=== PATIENT | female | born 1930 | race Caucasian/White ===

== ENCOUNTER 2017-01-05 07:51 | Observation (INO) ==
[2017-01-05] MEDS ORDERED: HYDROmorphone 2 MG/ML SYRINGE IV SCH (08:15)
[2017-01-05] MEDS ORDERED: 0.9 % SODIUM CHLORIDE 1,000 ML IV ONE (08:15)
[2017-01-05] MEDS ORDERED: LORazepam 2 MG/ML VIAL IV ONE (08:15)
[2017-01-05] MEDS ORDERED: KETOROLAC 30 MG/ML VIAL IV ONE (08:17)
[2017-01-05] MEDS ORDERED: HYDROmorphone 2 MG/ML SYRINGE ONE (08:18)
--- NOTE | 2017-01-05 08:21 | Emergency Department Note ---
Back Pain HPI - General Chief Complaint: Back Pain/Injury Stated Complaint: back pain Time Seen by Provider: 01/05/17 08:00 Source: patient Mode of arrival: EMS Limitations: no limitations - History of Present Illness HPI Narrative: 86-year-old female with acute on chronic low back pain comes in this morning via EMS for exacerbation. Apparently she was sitting on the toilet this morning and could not get up or off. It took 4 men to get off the toilet bring her in. They gave her 100 mcg of fentanyl en route which did not help at all. Apparently her pain has gradually been worsening over the last several weeks and she has been placed on narcotics which have made her very constipated. Her daughter is concerned that the constipation is making the back pain worse and believe she is dehydrated as well. She is taking gabapentin muscle relaxer and hydrocodone at home. She is also been using mag citrate without effect She came to our ER 9 days ago and was treated. Then came back on the . additionally she saw interventional pain consultants same day. Per the patient they could not find a cause for her back pain she says that she knows she has a bad disc that is causing her pain. However I do not have access to the records to verify. X-rays were done on 12/27/2016-that is on her first visit and they do not show significant cause for her severe back pain - Related Data Home Medications Medication Instructions Recorded Confirmed Citalopram [Celexa] 20 mg PO DAILY 12/27/16 12/27/16 HYDROcodone/ACETAMINOPHEN 1 each PO Q4HP PRN 12/27/16 12/27/16 [Hydrocodon-Acetaminophen 5-325] Isosorbide Mononitrate [Imdur] 30 mg PO DAILY 12/27/16 12/27/16 Metoprolol Unknown If Er 12/27/16 Ramipril [Altace] 10 mg PO DAILY 12/27/16 12/27/16 Simvastatin [Zocor] 20 mg PO DAILY 12/27/16 12/27/16 metFORMIN [Glucophage] 500 mg PO BIDCC 12/27/16 12/27/16 traZODone HCL [Trazodone HCl] 50 mg PO HS 12/27/16 12/27/16 Previous Rx's Medication Instructions Recorded HYDROcodone/APAP 10/325MG [[place]aron 1 tab PO Q6H PRN #15 tab 12/27/16 10/325Mg] RX: Gabapentin [Neurontin] 100 mg PO TID #30 cap 12/27/16 Methocarbamol [Robaxin] 500 mg PO QIDP #30 tab 12/30/16 Allergies Allergy/AdvReac Type Severity Reaction Status Date / Time Penicillins Allergy Unknown Hives Verified 01/05/17 07:56 ibuprofen AdvReac Mild Hives Verified 01/05/17 07:56 Review of Systems All systems ED: reviewed and negative except as stated. Past Medical History - Past Medical History Attestation: Yes: The following information was validated with the patient. Medical history: Reports: coronary artery disease, diabetes (type II , not on insulin), hypertension, valvular heart disease (mitral valve), other ( qustionable rheumatic fever) Surgical history ED: Reports: hysterectomy, orthopedic, other (Hip) - Social History smoking status: Never smoker Alcohol use: Reports: None Physical Exam Overweight elderly female in some distress secondary to pain. Normocephalic atraumatic. Conjunctive are clear sclerae nonicteric. No nasal discharge or congestion. Heart is regular rate and rhythm no murmurs appreciated. Lungs are clear to auscultation bilaterally without wheezes rales rhonchi or respiratory distress. Abdomen soft nontender nondistended. No peritoneal signs or guarding. +2 radial pulse. +2 posterior tibialis pulse. Unable to do straight leg raise secondary to patient positioning and cooperation. I examined her back at the time of moving her for CT scan-she does have tenderness all across her lumbar area but I do not see any deformity erythema or edema. Paraspinal areas appear normal. Is alert oriented able to answer questions appropriately. No dysarthria or ataxia. Appears globally frail/weak - General Limitations: no limitations Course Vital Signs Temperature 97.6 F 01/05/17 07:52 Pulse Rate 65 01/05/17 07:52 Respiratory Rate 20 01/05/17 07:52 Blood Pressure 213/76 01/05/17 07:52 Pulse Oximetry (%) 99 01/05/17 07:52 Temperature 97.6 F 01/05/17 07:52 Pulse Rate 63 01/05/17 09:04 Respiratory Rate 20 01/05/17 07:52 Blood Pressure 181/61 01/05/17 09:02 Pulse Oximetry (%) 95 01/05/17 09:04 Disposition Pt seen by CLINICAL FACULTY/PA only: No Summary: Patient is seen and evaluated. Difficult to get a good back exam on her secondary to cooperation but we did manage this. She was treated before her exam with some Dilaudid on top of the fentanyl that the EMS already given her. Additionally I ordered Toradol and Ativan. Because of possible dehydration we started IV fluids as well. I ordered an enema for the constipation and her home ramipril for blood pressure. CT scan was ordered for evaluation without contrast because this would show not only current state of her lower back but also stool burden and other exacerbating abdominal factors Became time for shift change and so patient is checked out to Dr. montemayor for further management Disposition: Still a Patient Condition: Undetermined Referrals: Edgardo Newman DO [Primary Care Provider] -
[2017-01-05] MEDS ORDERED: MINERAL OIL 1 DOSE ENEMA PR ONE (08:29)
[2017-01-05] MEDS ORDERED: RAMIPRIL 5 MG CAPSULE PO ONE (08:29)
--- NOTE | 2017-01-05 09:46 | Cat Scan Report ---
CLINICAL INFORMATION: Reason for Exam:severe low back pain, severe constipation COMPARISON: None. TECHNIQUE: The abdomen was imaged without oral or IV contrast, scanning from the diaphragm to the symphysis pubis. Sagittal and coronal reformats were created. FINDINGS: There are bands of scar atelectasis in both lung bases. Mild traction bronchiectasis is present in the posterior medial basal segment of the right lower lobe. The heart is mildly enlarged. Evaluation of abdominal organs without contrast is limited. No abnormality is seen within the liver, spleen, gallbladder, pancreas or adrenals. In the cortex and central third of the right kidney there is a vague low-attenuation structure which is approximately 1.4 cm in size. It has water attenuation and is most likely a cyst with partial volume averaging. The kidneys are otherwise normal and there is no kidney stone or hydronephrosis. There is a large amount of fecal material in the colon from the cecum to the rectum. There is also moderate amount of fluid in nondilated small bowel. The appendix is not visualized. The uterus and ovaries have been removed. Urinary bladder appears normal. There are gas degenerative changes throughout the thoracic and lumbar spine. There is severe spinal canal stenosis at L3-4 and L4-5. There is a metal pin in the left hip. 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 IMPRESSION: Fecal impaction Severe spinal canal stenosis at L3-4 and L4-5 Low-attenuation lesion in the right kidney which is probably a cyst Scar and discoid atelectasis in both lung bases Dr. Lewis was called with the results Interpreted and Authenticated by: Juan Bush 01/05/17
[2017-01-05] MEDS ORDERED: FLEETS ADULT ENEMA PR ONE (09:57)
[2017-01-05 10:14] LABS: ALT/SGPT 13 U/l (0-40); Albumin 3.2 gm/dL (3.2-5.2); Alkaline Phosphatase 77 U/L (39-117); Blood Urea Nitrogen 11 mg/dl (8-23)
[2017-01-05 10:18] LABS: Basophils # (Auto) 0.1 K/mcL (0.0-0.3); Basophils % (Auto) 0.7 % (0.0-2.0); Eosinophils # (Auto) 0.1 K/mcL (0.0-0.7); Eosinophils % (Auto) 1.2 % (0.0-7.0); Granulocytes % (Auto) 73.6 % (38.0-78.0); Lymphocytes # (Auto) 1.5 K/mcL (1.5-4.8); Lymphocytes % (Auto) 15.9 % (15.5-49.0); Mean Cell Volume 93.6 fL (80.0-100.0); Mean Corpuscular HGB Conc 32.9 g/dL (31.0-36.0); Mean Corpuscular Hemoglobin 30.8 pg (26.0-34.0); Monocytes # (Auto) 0.8 K/mcL (0.1-0.9); Monocytes % (Auto) 8.6 % (1.0-12.0); Platelet Count 259 K/mcL (140-440); RBC 3.73 M/mcL (4.00-5.20); Red Cell Distribution Width 12.9 % (11.5-14.5)
--- NOTE | 2017-01-05 12:01 | Emergency Department Note ---
Back Pain HPI - General Chief Complaint: Back Pain/Injury Stated Complaint: back pain Time Seen by Provider: 01/05/17 08:00 Source: patient Limitations: no limitations - Related Data Home Medications Medication Instructions Recorded Confirmed Citalopram [Celexa] 20 mg PO DAILY 12/27/16 12/27/16 HYDROcodone/ACETAMINOPHEN 1 each PO Q4HP PRN 12/27/16 12/27/16 [Hydrocodon-Acetaminophen 5-325] Isosorbide Mononitrate [Imdur] 30 mg PO DAILY 12/27/16 12/27/16 Metoprolol Unknown If Er 12/27/16 Ramipril [Altace] 10 mg PO DAILY 12/27/16 12/27/16 Simvastatin [Zocor] 20 mg PO DAILY 12/27/16 12/27/16 metFORMIN [Glucophage] 500 mg PO BIDCC 12/27/16 12/27/16 traZODone HCL [Trazodone HCl] 50 mg PO HS 12/27/16 12/27/16 Previous Rx's Medication Instructions Recorded Gabapentin [Neurontin] 100 mg PO TID #30 cap 12/27/16 HYDROcodone/APAP 10/325MG [[place] 1 tab PO Q6H PRN #15 tab 12/27/16 10/325Mg] Methocarbamol [Robaxin] 500 mg PO QIDP #30 tab 12/30/16 Allergies Allergy/AdvReac Type Severity Reaction Status Date / Time Penicillins Allergy Unknown Hives Verified 01/05/17 07:56 ibuprofen AdvReac Mild Hives Verified 01/05/17 07:56 Past Medical History - Past Medical History Medical history: Reports: coronary artery disease, diabetes (type II , not on insulin), hypertension, valvular heart disease (mitral valve), other ( qustionable rheumatic fever) Surgical history ED: Reports: hysterectomy, orthopedic, other (Hip) - Social History smoking status: Never smoker Alcohol use: Reports: None Physical Exam - General Limitations: no limitations Course Vital Signs Temperature 97.6 F 01/05/17 07:52 Pulse Rate 65 01/05/17 07:52 Respiratory Rate 20 01/05/17 07:52 Blood Pressure 213/76 01/05/17 07:52 Pulse Oximetry (%) 99 01/05/17 07:52 Temperature 97.6 F 01/05/17 07:52 Pulse Rate 56 L 01/05/17 11:54 Respiratory Rate 20 01/05/17 07:52 Blood Pressure 142/51 01/05/17 11:46 Pulse Oximetry (%) 100 01/05/17 11:54 Back Pain/Injury - MDM Narrative Medical decision making narrative: This patient CT scan shows severe's spinal stenosis and possible stool impaction. However she had minimal stool in the vault and did respond to an enema. I did recommend to the family that they start Colace 100 mg twice a day and follow-up with Dr. Lit Martins. - Lab Data Lab results reviewed: Yes I reviewed the patient's lab results. Result diagrams: 01/05/17 09:20 01/05/17 09:20 Lab Results 01/05/17 01/05/17 01/05/17 Range/Units 09:20 09:20 09:20 WBC 9.4 (4.5-11.0) K/mcL RBC 3.73 L (4.00-5.20) M/mcL Hgb 11.5 L (12.0-15.0) g/dL Hct 34.9 L (36.0-48.0) % MCV 93.6 (80.0-100.0) fL MCH 30.8 (26.0-34.0) pg MCHC 32.9 (31.0-36.0) g/dL RDW 12.9 (11.5-14.5) % Plt Count 259 (140-440) K/mcL MPV 10.0 (7.4-10.4) fL Gran % 73.6 (38.0-78.0) % Lymph % (Auto) 15.9 (15.5-49.0) % [place] % (Auto) 8.6 (1.0-12.0) % Eos % (Auto) 1.2 (0.0-7.0) % Baso % (Auto) 0.7 (0.0-2.0) % Gran # 6.9 (1.8-8.0) K/mcL Lymph # (Auto) 1.5 (1.5-4.8) K/mcL [place] # (Auto) 0.8 (0.1-0.9) K/mcL Eos # (Auto) 0.1 (0.0-0.7) K/mcL Baso # (Auto) 0.1 (0.0-0.3) K/mcL VBG Lactic Acid 1.2 (0.5-2.2) mmol/L Sodium 137 (133-145) mmol/L Potassium 3.9 (3.3-5.1) mmol/L Chloride 100 (96-108) mmol/L Carbon Dioxide 24 (22-30) mmol/L Anion Gap 13.0 (8-16) BUN 11 (8-23) mg/dl Creatinine 0.6 (0.6-1.1) mg/dl GFR Calculation 83 Glucose 113 H (70-105) mg/dL Calcium 8.5 L (8.6-10.4) mg/dl Total Bilirubin 0.7 (0.0-1.0) mg/dL AST 15 (0-37) U/l ALT 13 (0-40) U/l Alkaline Phosphatase 77 (39-117) U/L Total Protein 6.3 (5.9-8.4) gm/dL Albumin 3.2 (3.2-5.2) gm/dL Globulin 3.1 (2.2-3.7) gm/dL Albumin/Globulin Ratio 1.0 (1.0-2.3) - Radiology Data Radiology results reviewed: Yes I reviewed the patient's radiology results. Disposition Pt seen by BEHAVIORAL INTERVENTIONIST/PA only: No Clinical Impression: Lumbar radiculopathy, Degenerative disc disease, Spinal stenosis, Constipation Disposition: Still a Patient Condition: Good Instructions: Lumbar Spinal Stenosis (ED), Constipation (ED) Additional Instructions: Colace 100 mg twice a day Referrals: Edgardo Newman DO [Primary Care Provider] - Time of Disposition: 12:01
--- NOTE | 2017-01-05 12:02 | Emergency Department Note ---
Back Pain HPI - General Chief Complaint: Back Pain/Injury Stated Complaint: back pain Time Seen by Provider: 01/05/17 08:00 Source: patient Limitations: no limitations - Related Data Home Medications Medication Instructions Recorded Confirmed Citalopram [Celexa] 20 mg PO DAILY 12/27/16 12/27/16 HYDROcodone/ACETAMINOPHEN 1 each PO Q4HP PRN 12/27/16 12/27/16 [Hydrocodon-Acetaminophen 5-325] Isosorbide Mononitrate [Imdur] 30 mg PO DAILY 12/27/16 12/27/16 Metoprolol Unknown If Er 12/27/16 Ramipril [Altace] 10 mg PO DAILY 12/27/16 12/27/16 Simvastatin [Zocor] 20 mg PO DAILY 12/27/16 12/27/16 metFORMIN [Glucophage] 500 mg PO BIDCC 12/27/16 12/27/16 traZODone HCL [Trazodone HCl] 50 mg PO HS 12/27/16 12/27/16 Previous Rx's Medication Instructions Recorded Gabapentin [Neurontin] 100 mg PO TID #30 cap 12/27/16 HYDROcodone/APAP 10/325MG [[place] 1 tab PO Q6H PRN #15 tab 12/27/16 10/325Mg] Methocarbamol [Robaxin] 500 mg PO QIDP #30 tab 12/30/16 Allergies Allergy/AdvReac Type Severity Reaction Status Date / Time Penicillins Allergy Unknown Hives Verified 01/05/17 07:56 ibuprofen AdvReac Mild Hives Verified 01/05/17 07:56 Past Medical History - Past Medical History Medical history: Reports: coronary artery disease, diabetes (type II , not on insulin), hypertension, valvular heart disease (mitral valve), other ( qustionable rheumatic fever) Surgical history ED: Reports: hysterectomy, orthopedic, other (Hip) - Social History smoking status: Never smoker Alcohol use: Reports: None Physical Exam - General Limitations: no limitations Course Vital Signs Temperature 97.6 F 01/05/17 07:52 Pulse Rate 65 01/05/17 07:52 Respiratory Rate 20 01/05/17 07:52 Blood Pressure 213/76 01/05/17 07:52 Pulse Oximetry (%) 99 01/05/17 07:52 Temperature 97.6 F 01/05/17 07:52 Pulse Rate 56 L 01/05/17 11:54 Respiratory Rate 20 01/05/17 07:52 Blood Pressure 142/51 01/05/17 11:46 Pulse Oximetry (%) 100 01/05/17 11:54 Back Pain/Injury - Lab Data Result diagrams: 01/05/17 09:20 01/05/17 09:20 Lab Results 01/05/17 01/05/17 01/05/17 Range/Units 09:20 09:20 09:20 WBC 9.4 (4.5-11.0) K/mcL RBC 3.73 L (4.00-5.20) M/mcL Hgb 11.5 L (12.0-15.0) g/dL Hct 34.9 L (36.0-48.0) % MCV 93.6 (80.0-100.0) fL MCH 30.8 (26.0-34.0) pg MCHC 32.9 (31.0-36.0) g/dL RDW 12.9 (11.5-14.5) % Plt Count 259 (140-440) K/mcL MPV 10.0 (7.4-10.4) fL Gran % 73.6 (38.0-78.0) % Lymph % (Auto) 15.9 (15.5-49.0) % [place] % (Auto) 8.6 (1.0-12.0) % Eos % (Auto) 1.2 (0.0-7.0) % Baso % (Auto) 0.7 (0.0-2.0) % Gran # 6.9 (1.8-8.0) K/mcL Lymph # (Auto) 1.5 (1.5-4.8) K/mcL [place] # (Auto) 0.8 (0.1-0.9) K/mcL Eos # (Auto) 0.1 (0.0-0.7) K/mcL Baso # (Auto) 0.1 (0.0-0.3) K/mcL VBG Lactic Acid 1.2 (0.5-2.2) mmol/L Sodium 137 (133-145) mmol/L Potassium 3.9 (3.3-5.1) mmol/L Chloride 100 (96-108) mmol/L Carbon Dioxide 24 (22-30) mmol/L Anion Gap 13.0 (8-16) BUN 11 (8-23) mg/dl Creatinine 0.6 (0.6-1.1) mg/dl GFR Calculation 83 Glucose 113 H (70-105) mg/dL Calcium 8.5 L (8.6-10.4) mg/dl Total Bilirubin 0.7 (0.0-1.0) mg/dL AST 15 (0-37) U/l ALT 13 (0-40) U/l Alkaline Phosphatase 77 (39-117) U/L Total Protein 6.3 (5.9-8.4) gm/dL Albumin 3.2 (3.2-5.2) gm/dL Globulin 3.1 (2.2-3.7) gm/dL Albumin/Globulin Ratio 1.0 (1.0-2.3) Disposition Pt seen by RETAIL WAREHOUSE ASSOCIATE/PA only: No Clinical Impression: Lumbar radiculopathy, Degenerative disc disease, Spinal stenosis, Constipation Disposition: Still a Patient Condition: Good Instructions: Constipation (ED), Lumbar Spinal Stenosis (ED) Additional Instructions: Colace 100 mg twice a day Referrals: Edgardo Newman DO [Primary Care Provider] - Mukesh Martins MD [Physician] -
[2017-01-05] MEDS ORDERED: HYDROmorphone 2 MG/ML SYRINGE IV ONE (12:33)
[2017-01-05] MEDS ORDERED: oxyCODONE HCL 5 MG TABLET PO PRN (13:42)
[2017-01-05] MEDS ORDERED: ONDANSETRON 4 MG/2 ML VIAL IV PRN (13:42)
[2017-01-05] MEDS ORDERED: FLEETS ADULT ENEMA PR PRN (13:42)
[2017-01-05] MEDS ORDERED: NALOXONE HCL 0.4 MG/ML VIAL IV PRN (13:42)
[2017-01-05] MEDS ORDERED: MAG HYDROX/AL HYDROX/SIMETH 30 ML ORAL.SUSP PO PRN (13:42)
[2017-01-05] MEDS ORDERED: MAGNESIUM HYDROXIDE 30 ML ORAL.SUSP PO PRN (13:42)
[2017-01-05] MEDS ORDERED: METHOCARBAMOL 500 MG TABLET PO SCH (13:45)
[2017-01-05] MEDS ORDERED: POLYETHYLENE GLYCOL 3350 17 GM PACKET PO ONE (14:04)
--- NOTE | 2017-01-05 14:27 | Internal Med History&Physical ---
Medical - H&P: HPI Patient information: Note initiated : 01/05/17 at 2:26 pm Service Date, if different from initiated Date: [] Patient: Arminda Loera 86 y/o F admitted on 01/05/17 for back pain. Chief Complaint: [] History of present illness: Ms. Loera is a 86 year old Female with h/o chr back pain spanning 2 decades presents to the ER today with complaints of acute exacerbation of chr back pain. he patient has known history of spinal stenosis, and DDD of spine, advised surgery approx 17 hrs ago, which she did not want to undergo. The patient now presents with pain in the lower back. The patient notes she fell on the right side of her body approximately 10-14 days ago in a parking lot, the pain started a few days later, lower back, 10/10 severity, radiates anteriority, worse with activity better with rest. she has been seen in the ER 3 times for this pain and finally today has been admitted for management. The patient in the last visits was started on gabapentin and methocarbamol. The patient also is taking hydrocodone for her pain. She has not had a BM x 5-6 days and has poor oral intake. The patient also has significant constipation which is related to her use of narcotic pain medications. she denies any new weakness in the legs or loss of bowel bladder control, (has constipation) Usually she follows with Dr Thompson from the pain clinic for management of her pain, she receives injections in her back which help her. This time she was not able to reach her pain doctor due to severity of her pain. In the ER she had a CT scan abdomen done which showed severe spinal stenosis, l3 -l4, and l4-5, fecal impaction. She was given enema in the ER with good response. her labs are otherwise normal Patient was admitted to the hospital for management of acute pain. All systems: reviewed and no additional remarkable complaints except as stated ( as per hpi) Medical - H&P: PMH Medical history: Medical History Degenerative disc disease (Acute) Strain of lumbar region (Acute) Lumbar radiculopathy (Acute) Spinal stenosis (Acute) Constipation (Acute) dm htn hld Pertinent family history: not reviewed Social history: lives with Medical - H&P: Meds Home Medications Medication Instructions Recorded Confirmed Type Citalopram [Celexa] 20 mg PO DAILY 12/27/16 01/05/17 History Gabapentin [Neurontin] 100 mg PO TID #30 cap 12/27/16 01/05/17 Rx HYDROcodone/ACETAMINOPHEN 1 each PO Q4HP PRN 12/27/16 01/05/17 History [Hydrocodon-Acetaminophen 5-325] Isosorbide Mononitrate [Imdur] 30 mg PO DAILY 12/27/16 01/05/17 History Metoprolol Unknown If Er 12/27/16 History Ramipril [Altace] 10 mg PO DAILY 12/27/16 01/05/17 History Simvastatin [Zocor] 20 mg PO DAILY 12/27/16 01/05/17 History metFORMIN [Glucophage] 500 mg PO BIDCC 12/27/16 01/05/17 History traZODone HCL [Trazodone HCl] 50 mg PO HS 12/27/16 01/05/17 History Methocarbamol [Robaxin] 500 mg PO QIDP #30 tab 12/30/16 01/05/17 Rx Allergies Allergy/AdvReac Type Severity Reaction Status Date / Time ibuprofen AdvReac Mild Hives Verified 01/05/17 07:56 Penicillins AdvReac Mild Hives Verified 01/05/17 13:59 Medical - H&P: Exam - Constitutional Vitals: Temp Pulse Resp BP Pulse Ox 97.9 F 71 20 182/80 93 01/05/17 13:35 01/05/17 13:23 01/05/17 13:35 01/05/17 13:35 01/05/17 13:35 Exam: GENERAL: The patient is a well-developed, well-nourished in no apparent distress. Is alert and oriented x3. VITAL SIGNS: Reviewed and as noted elsewhere. HEENT: Head is normocephalic and atraumatic. Extraocular muscles are intact. Pupils are equal, round, and reactive to light. Nares appeared normal. Mouth appears any without lesions. Mucous membranes are dry NECK: Normal to inspection, Supple, No lymphadenopathy or thyromegaly. LUNGS: Air entry equal on both sides, no wheezing, crackles or rhonchi noted. No accessory muscles of respiration HEART: Regular rate and rhythm normal, S1 and S2 heard, no Gallop, S3 or Rub Noted, No Gross murmur heard. ABDOMEN: Soft, nontender, and nondistended. Positive bowel sounds. No hepatosplenomegaly was noted. EXTREMITIES: No cyanosis, clubbing, rash, lesions or edema. NEUROLOGIC: Cranial nerves II through XII are grossly intact. Motor and Sensory System Grossly Intact PSYCHIATRIC: Normal affect, Normal Mood. Appropriate Behavior. SKIN: No ulceration or wounds noted, No jaundice, No rash noted. Medical - H&P: Reslt - Labs CBC & Chem 7: 01/05/17 09:20 01/05/17 09:20 Labs: Short CBC 01/05/17 Range/Units 09:20 WBC 9.4 (4.5-11.0) K/mcL Hgb 11.5 L (12.0-15.0) g/dL Hct 34.9 L (36.0-48.0) % Plt Count 259 (140-440) K/mcL BMP 01/05/17 09:20 Sodium 137 Potassium 3.9 Chloride 100 Carbon Dioxide 24 BUN 11 Creatinine 0.6 Glucose 113 H Calcium 8.5 L Liver Function 01/05/17 Range/Units 09:20 Total Bilirubin 0.7 (0.0-1.0) mg/dL AST 15 (0-37) U/l ALT 13 (0-40) U/l Alkaline Phosphatase 77 (39-117) U/L Albumin 3.2 (3.2-5.2) gm/dL Medical - H&P: A/P - Narrative A/P Narrative: A/P Acute exacerbation of chr back pain Acute constipatin DM HTN HLD Plan Admit to obs Scheduled tylenol Po oxycodoone for moderate to severe pain good bowel regime, miralax x 1, docudate and senna. Resume home meds as appropiriate IVFluids PT/OT eval and treat DVT hep sq Diet Carb consistent DNR Medical - H&P: Qual - Stroke Symptom Onset Unknown: No - VTE Deep Vein Thrombosis/Pulmonary Embolism Present on Admission: No Social History - Tobacco smoking status: Never smoker
[2017-01-05] MEDS ORDERED: DEXTROSE 50% 50 ML VIAL IV PRN (14:39)
[2017-01-05] MEDS ORDERED: DEXTROSE 31 GM ORAL.SUSP PO PRN (14:39)
[2017-01-05] MEDS: LACTATED RINGERS 1,000 ML IV SCH (14:46)
[2017-01-05] MEDS: ACETAMINOPHEN 325 MG TABLET PO SCH ×2 (14:48→20:24)
[2017-01-05] MEDS: 0.9 % SODIUM CHLORIDE 10 ML SYRINGE IV SCH ×2 (14:48→20:27)
[2017-01-05] MEDS: METHOCARBAMOL 500 MG TABLET PO SCH ×2 (14:48→20:26)
[2017-01-05] MEDS: GABAPENTIN 100 MG CAPSULE PO SCH ×2 (14:48→20:27)
[2017-01-05] MEDS: IPRATROPIUM/ALBUTEROL 3 ML AMPUL.NEB NEB SCH ×2 (16:42→19:23)
[2017-01-05] MEDS: metFORMIN 500 MG TABLET PO SCH (16:42)
[2017-01-05] MEDS: INSULIN LISPRO 1 UNIT/0.01 ML UNIT SQ SCH ×2 (16:43→20:50)
[2017-01-05] MEDS ORDERED: IPRATROPIUM/ALBUTEROL 3 ML AMPUL.NEB NEB PRN (20:05)
[2017-01-05] MEDS: traZODone HCL 50 MG TABLET PO SCH (20:26)
[2017-01-05] MEDS: DOCUSATE SODIUM 100 MG CAPSULE PO SCH (20:26)
[2017-01-05] MEDS: SIMVASTATIN 20 MG TABLET PO SCH (20:27)
[2017-01-05] MEDS: HEPARIN 5,000 UNIT/ML VIAL SQ SCH (20:28)
[2017-01-05] MEDS: SENNOSIDES 1 TABLET PO SCH (20:28)
[2017-01-06] MEDS: ACETAMINOPHEN 325 MG TABLET PO SCH ×4 (01:26→20:58)
[2017-01-06] MEDS: LACTATED RINGERS 1,000 ML IV SCH ×2 (03:42→08:02)
[2017-01-06] MEDS: 0.9 % SODIUM CHLORIDE 10 ML SYRINGE IV SCH ×3 (05:23→21:08)
[2017-01-06] MEDS: INSULIN LISPRO 1 UNIT/0.01 ML UNIT SQ SCH ×4 (07:34→20:57)
[2017-01-06] MEDS: metFORMIN 500 MG TABLET PO SCH ×2 (07:35→17:18)
[2017-01-06 08:13] LABS: Basophils # (Auto) 0 K/mcL (0.0-0.3); Basophils % (Auto) 0.6 % (0.0-2.0); Eosinophils # (Auto) 0.1 K/mcL (0.0-0.7); Eosinophils % (Auto) 1.2 % (0.0-7.0); Granulocytes % (Auto) 57.2 % (38.0-78.0); Lymphocytes # (Auto) 2.4 K/mcL (1.5-4.8); Lymphocytes % (Auto) 34.5 % (15.5-49.0); Mean Cell Volume 93.3 fL (80.0-100.0); Mean Corpuscular HGB Conc 34.4 g/dL (31.0-36.0); Mean Corpuscular Hemoglobin 32.1 pg (26.0-34.0); Monocytes # (Auto) 0.4 K/mcL (0.1-0.9); Monocytes % (Auto) 6.5 % (1.0-12.0); Platelet Count 300 K/mcL (140-440); RBC 3.63 M/mcL (4.00-5.20); Red Cell Distribution Width 13.9 % (11.5-14.5)
[2017-01-06 08:32] LABS: Blood Urea Nitrogen 8 mg/dl (8-23)
[2017-01-06] MEDS: METHOCARBAMOL 500 MG TABLET PO SCH ×3 (09:15→20:57)
[2017-01-06] MEDS: DOCUSATE SODIUM 100 MG CAPSULE PO SCH ×2 (09:15→20:57)
[2017-01-06] MEDS: LISINOPRIL 10 MG TABLET PO SCH (09:15)
[2017-01-06] MEDS: CITALOPRAM 20 MG TABLET PO SCH (09:15)
[2017-01-06] MEDS: GABAPENTIN 100 MG CAPSULE PO SCH ×3 (09:15→20:57)
[2017-01-06] MEDS: ISOSORBIDE MONONITRATE 30 MG TAB.XL.24H PO SCH (09:15)
[2017-01-06] MEDS: HEPARIN 5,000 UNIT/ML VIAL SQ SCH ×2 (09:16→20:56)
[2017-01-06] MEDS: LIDOCAINE PATCH TOPICAL SCH ×3 (09:18→21:07)
--- NOTE | 2017-01-06 15:49 | Internal Med Progress Note ---
Medical - PN: Subj Patient information: Note initiated : 01/06/17 at 3:44 pm Service Date, if different from initiated Date: [] Patient: Arminad Loera 86 y/o F admitted on 01/05/17 for Back Pain/Management of Acute Pain. Chief Complaint: [] Interval history: Ms. Loera is a 86 year old Female with h/o chr back pain spanning 2 decades presents to the ER today with complaints of acute exacerbation of chr back pain. he patient has known history of spinal stenosis, and DDD of spine, advised surgery approx 17 hrs ago, which she did not want to undergo. The patient now presents with pain in the lower back. The patient notes she fell on the right side of her body approximately 10-14 days ago in a parking lot, the pain started a few days later, lower back, 10/10 severity, radiates anteriority, worse with activity better with rest. she has been seen in the ER 3 times for this pain and finally today has been admitted for management. The patient in the last visits was started on gabapentin and methocarbamol. The patient also is taking hydrocodone for her pain. She has not had a BM x 5-6 days and has poor oral intake. The patient also has significant constipation which is related to her use of narcotic pain medications. she denies any new weakness in the legs or loss of bowel bladder control, (has constipation) Usually she follows with Dr Thompson from the pain clinic for management of her pain, she receives injections in her back which help her. This time she was not able to reach her pain doctor due to severity of her pain. In the ER she had a CT scan abdomen done which showed severe spinal stenosis, l3 -l4, and l4-5, fecal impaction. She was given enema in the ER with good response. her labs are otherwise normal Patient was admitted to the hospital for management of acute pain. January 06 Patient seen examined, no acute ovenight events she still has pain when trying to amulate but her meds seem to be helping her pain she did not complaint of pain while in bed, but not sure if she will be abl to be pain free without her home meds. she was started on lidoderm patches today PT and OT to help with back pain she continues to have good BM Pertinent ROS: Denies headache, dizziness Denies chest pain, palpitations Denies cough or shortness of breath Denies abdominal pain, nausea or vomiting. - Constitutional Vitals: Vital Signs Temp Pulse Resp BP Pulse Ox 97.6 F 61 20 185/82 95 01/06/17 15:35 01/06/17 08:51 01/06/17 15:35 01/06/17 15:35 01/06/17 15:35 Period Temp Pulse Resp BP Sys/Warner Pulse Ox Last 24 Hr 97 F-98.1 F 58-63 12-22 152-186/67-83 94-97 Intake and Output 01/06/17 01/06/17 01/06/17 05:59 13:59 21:59 Intake Total 1250 / 1250 120 / 120 Output Total 1001 / 1001 900 / 900 Balance 249 / 249 -900 / -900 120 / 120 Intake & Output: Intake & Output 01/06/17 01/06/17 01/06/17 05:59 13:59 21:59 Intake Total 1250 / 1250 120 / 120 Output Total 1001 / 1001 900 / 900 Balance 249 / 249 -900 / -900 120 / 120 Intake: IV 1000 / 1000 Lactated Ringers 1,000 ml @ 75 1000 / 1000 mls/hr IV .[id number] [facility] Rx#: [id number] Oral 250 / 250 120 / 120 Output: Void Amount 1000 / 1000 900 / 900 # of times incontinent of urine Other: Meal Breakfast Percent of Meal Consumed 100% Feeding Ability Independent # Voids 1 1 # Bowel Movements 1 1 Exam: Constitutional; Afebrile, cooperative, alert, not in distress. Eyes- No icterus, , No periorbital swelling Ears- Ext ear normal, hearing normal to conversation. Neck- Midline trachea, supple Respiratory system: Air Entry equal on both sides, No crackles or wheezing, no rhonchi. CVS- Rate rhythm regular, S1,S2 heard, no gallop, no rub. Abdomen- Soft nontender abdomen, no organomegaly, no tenderness, no guarding or rigidity, PRESS CUTTER- AOOx3, moving all extremities, no gross focal deficit noted. Medical - PN: Obj Da - Labs CBC & Chem 7: 01/06/17 07:45 01/06/17 07:45 Labs: Abnormal Lab Results 01/06/17 01/06/17 01/05/17 07:45 07:45 09:20 RBC 3.63 L Hgb 11.6 L Hct 33.8 L Creatinine 0.5 L Glucose 115 H 113 H Calcium 8.5 L 01/05/17 09:20 RBC 3.73 L Hgb 11.5 L Hct 34.9 L Creatinine Glucose Calcium Meds: Medications Acetaminophen (Tylenol) 650 mg PO Q6H [facility] Last Admin: 01/06/17 13:55 Dose: 650 mg Al Hydrox/Mg Hydrox/Simethicone (Maalox) 30 ml PO Q6HP PRN PRN Reason: Dyspepsia Citalopram Hydrobromide (Celexa) 20 mg PO DAILY [facility] Last Admin: 01/06/17 09:15 Dose: 20 mg Dextrose (Dextrose 50%) 0 ml IV UD PRN PRN Reason: Hypoglycemia Diagnostic Test (Pha) (Accu-Chek) 1 each FS ACHS [facility] Last Admin: 01/06/17 11:31 Dose: 1 each Docusate Sodium (Colace) 100 mg PO BID [facility] Last Admin: 01/06/17 09:15 Dose: 100 mg Gabapentin (Neurontin) 100 mg PO TID [facility] Last Admin: 01/06/17 14:24 Dose: 100 mg Glucose (Insta-Glucose) 15 gm PO PRN PRN PRN Reason: Hypoglycemia Heparin Sodium (Porcine) (Heparin) 5,000 unit SQ Q12 [facility] Last Admin: 01/06/17 09:16 Dose: 5,000 unit Lactated Ringer's (Lactated Ringers) 1,000 mls @ 75 mls/hr IV .[id number] [facility] Stop: 01/06/17 16:21 Last Admin: 01/06/17 08:02 Dose: 75 mls/hr Insulin Human Lispro (Humalog) 0 unit SQ ACHS [facility] PRN Reason: Protocol Last Admin: 01/06/17 11:33 Dose: Not Given Isosorbide Mononitrate (Imdur) 30 mg PO DAILY [facility] Last Admin: 01/06/17 09:15 Dose: 30 mg Lidocaine (Lidoderm) 1 patch TOPICAL DAILY@1000 [facility] Last Admin: 01/06/17 10:08 Dose: Not Given Lidocaine (Lidoderm) 0 patch TOPICAL DAILY@2200 [facility] Lisinopril (Zestril) 10 mg PO DAILY [facility] Last Admin: 01/06/17 09:15 Dose: 10 mg Magnesium Hydroxide (Milk Of Magnesia) 30 ml PO DAILYP PRN PRN Reason: Constipation Metformin HCl (Glucophage) 500 mg PO BIDCC [facility] Last Admin: 01/06/17 07:35 Dose: 500 mg Methocarbamol (Robaxin) 500 mg PO TID [facility] Last Admin: 01/06/17 14:24 Dose: 500 mg Naloxone HCl (Narcan) 0.1 mg IV Q2MIN PRN PRN Reason: Opiate Reversal Ondansetron HCl (Zofran) 4 mg IV Q6HP PRN PRN Reason: Nausea And Vomiting Oxycodone HCl (Roxicodone) 5 mg PO Q4HP PRN PRN Reason: Pain Last Admin: 01/06/17 08:02 Dose: 5 mg Senna (Senokot) 2 tab PO HS [facility] Last Admin: 01/05/17 20:28 Dose: Not Given Simvastatin (Zocor) 20 mg PO HS [facility] Last Admin: 01/05/17 20:27 Dose: 20 mg Sodium Biphosphate/Sodium Phosphate (Fleets Adult) 1 dose NH Q3-4DAYS PRN PRN Reason: Constipation Sodium Chloride (Saline Flush) 10 ml IV Q8 [facility] Last Admin: 01/06/17 13:55 Dose: Not Given Trazodone HCl (Desyrel) 50 mg PO HS [facility] Last Admin: 01/05/17 20:26 Dose: 50 mg Medical - PN: A/P - Time Spent With Patient Total time spent is greater than 50% in coordination of care (as documented) at patient's floor/unit and/or counseling patient: - Narrative A/P Narrative: A/P Acute exacerbation of chr back pain Acute constipation DM HTN HLD Plan Scheduled tylenol and methacarbamol for now. continue gabapentin and Lidoderm pt is doing better clinically. but sure not sure if can go home thinks she is symptomatically better but not sure how she would do without pain meds continue with Po oxycodoone for moderate to severe pain good bowel regime, continue with home meds for htn, hld and dm IVFluids DVT hep sq Diet Carb consistent DNR Medical - PN: Qual - Stroke Symptom Onset Unknown: No - VTE Deep Vein Thrombosis/Pulmonary Embolism Present on Admission: No
[2017-01-06] MEDS: traZODone HCL 50 MG TABLET PO SCH (20:57)
[2017-01-06] MEDS: SIMVASTATIN 20 MG TABLET PO SCH (20:57)
[2017-01-06] MEDS: SENNOSIDES 1 TABLET PO SCH (20:57)
[2017-01-07] MEDS: ACETAMINOPHEN 325 MG TABLET PO SCH ×4 (02:32→20:39)
[2017-01-07 05:51] LABS: Basophils # (Auto) 0 K/mcL (0.0-0.3); Basophils % (Auto) 0.6 % (0.0-2.0); Eosinophils # (Auto) 0.1 K/mcL (0.0-0.7); Eosinophils % (Auto) 2.5 % (0.0-7.0); Granulocytes % (Auto) 59.6 % (38.0-78.0); Lymphocytes # (Auto) 1.5 K/mcL (1.5-4.8); Mean Cell Volume 93.8 fL (80.0-100.0); Mean Corpuscular HGB Conc 33.8 g/dL (31.0-36.0); Mean Corpuscular Hemoglobin 31.7 pg (26.0-34.0); Monocytes # (Auto) 0.6 K/mcL (0.1-0.9); Monocytes % (Auto) 11.3 % (1.0-12.0); Platelet Count 293 K/mcL (140-440); RBC 3.46 M/mcL (4.00-5.20)
[2017-01-07] MEDS: 0.9 % SODIUM CHLORIDE 10 ML SYRINGE IV SCH ×3 (06:00→20:41)
[2017-01-07 06:14] LABS: ALT/SGPT 10 U/l (0-40); Albumin 3.1 gm/dL (3.2-5.2); Alkaline Phosphatase 74 U/L (39-117); Bilirubin,Direct < 0.2 mg/dL (0.0-0.3); Blood Urea Nitrogen 8 mg/dl (8-23); Gamma Glutamyl Transpeptidase 19 U/L (5-36); Magnesium 1.6 mg/dL (1.6-2.5); Uric Acid 3.9 mg/dL (2.5-8.0)
[2017-01-07] MEDS ORDERED: traMADol 50 MG TABLET PO PRN (07:38)
[2017-01-07] MEDS: METHOCARBAMOL 500 MG TABLET PO SCH ×3 (08:15→20:39)
[2017-01-07] MEDS: INSULIN LISPRO 1 UNIT/0.01 ML UNIT SQ SCH ×4 (08:15→20:52)
[2017-01-07] MEDS: ISOSORBIDE MONONITRATE 30 MG TAB.XL.24H PO SCH (08:15)
[2017-01-07] MEDS: metFORMIN 500 MG TABLET PO SCH ×2 (08:16→17:53)
[2017-01-07] MEDS: DOCUSATE SODIUM 100 MG CAPSULE PO SCH ×2 (08:16→20:40)
[2017-01-07] MEDS: LISINOPRIL 10 MG TABLET PO SCH (08:16)
[2017-01-07] MEDS: CITALOPRAM 20 MG TABLET PO SCH (08:16)
[2017-01-07] MEDS: HEPARIN 5,000 UNIT/ML VIAL SQ SCH ×2 (08:19→20:40)
[2017-01-07] MEDS: LIDOCAINE PATCH TOPICAL SCH ×2 (12:30→20:53)
[2017-01-07] MEDS: GABAPENTIN 100 MG CAPSULE PO SCH ×3 (12:30→20:39)
--- NOTE | 2017-01-07 20:22 | Internal Med Progress Note ---
Medical - PN: Subj Patient information: Note initiated : 01/07/17 at 8:20 pm Service Date, if different from initiated Date: [] Patient: Arminda Loera 86 y/o F admitted on 01/05/17 for Back Pain/Management of Acute Pain. Chief Complaint: [] Interval history: Ms. Loera is a 86 year old Female with h/o chr back pain spanning 2 decades presents to the ER today with complaints of acute exacerbation of chr back pain. he patient has known history of spinal stenosis, and DDD of spine, advised surgery approx 17 hrs ago, which she did not want to undergo. The patient now presents with pain in the lower back. The patient notes she fell on the right side of her body approximately 10-14 days ago in a parking lot, the pain started a few days later, lower back, 10/10 severity, radiates anteriority, worse with activity better with rest. she has been seen in the ER 3 times for this pain and finally today has been admitted for management. The patient in the last visits was started on gabapentin and methocarbamol. The patient also is taking hydrocodone for her pain. She has not had a BM x 5-6 days and has poor oral intake. The patient also has significant constipation which is related to her use of narcotic pain medications. she denies any new weakness in the legs or loss of bowel bladder control, (has constipation) Usually she follows with Dr Thompson from the pain clinic for management of her pain, she receives injections in her back which help her. This time she was not able to reach her pain doctor due to severity of her pain. In the ER she had a CT scan abdomen done which showed severe spinal stenosis, l3 -l4, and l4-5, fecal impaction. She was given enema in the ER with good response. her labs are otherwise normal Patient was admitted to the hospital for management of acute pain. January 06 Patient seen examined, no acute ovenight events she still has pain when trying to amulate but her meds seem to be helping her pain she did not complaint of pain while in bed, but not sure if she will be abl to be pain free without her home meds. she was started on lidoderm patches today PT and OT to help with back pain she continues to have good BM January 07: Today, the patient continues to complain of fairly severe low back pain. Therapist no that she both complains of pain and worries about pain she might have, and is very tentative with attempts at therapy. Social work has reviewed her home situation, and although the son and [id number] live next door, they are too ill to provide care. is also too week to provide reliable care and is very hard of hearing. Our therapist feel that the patient needs a great deal of assistance, and would not do well with returning home. Therefore case management has met with him at length, and I believe they have agreed to transfer to a nursing facility for short-term rehab. The patient continues to have significant pain, but any narcotics seem to cause increased confusion. She otherwise denies fever chills, chest pain or shortness of breath, nausea or vomiting. She is having bowel movements, but says she has trouble feeling was actually happening when she voids. - Constitutional Vitals: Vital Signs Temp Pulse Resp BP Pulse Ox 97.5 F 68 20 157/70 96 01/07/17 16:00 01/07/17 03:34 01/07/17 16:00 01/07/17 16:00 01/07/17 16:00 Period Temp Pulse Resp BP Sys/Warner Pulse Ox Last 24 Hr 97.0 F-98.4 F 68-82 20-20 145-165/69-74 94-96 Intake and Output 01/07/17 01/07/17 01/07/17 05:59 13:59 21:59 Intake Total 100 / 100 240 / 240 Output Total 425 / 425 200 / 200 Balance -325 / -325 -200 / -200 240 / 240 Intake & Output: Intake & Output 01/07/17 01/07/17 01/07/17 05:59 13:59 21:59 Intake Total 100 / 100 240 / 240 Output Total 425 / 425 200 / 200 Balance -325 / -325 -200 / -200 240 / 240 Intake: Oral 100 / 100 240 / 240 Output: Void Amount 425 / 425 200 / 200 Other: Meal Dinner Percent of Meal Consumed 75% Feeding Ability Independent # Voids 1 # Bowel Movements 1 1 On exam, she grimaces quite a bit, and has a depressed affect. Neck is supple without obvious lymphadenopathy or JVD. Lungs are clear to auscultation. Cardiac exam shows regular rate and rhythm. Abdomen is soft and nontender. Extremities show no edema. Neurologic exam: Patient appears quite forgetful. Exam is otherwise grossly nonfocal. Medical - PN: Obj Da - Labs CBC & Chem 7: 01/07/17 04:40 01/07/17 04:40 Labs: Abnormal Lab Results 01/07/17 01/07/17 01/06/17 04:40 04:40 07:45 RBC 3.46 L Hgb 11.0 L Hct 32.5 L Creatinine 0.5 L Glucose 122 H 115 H Calcium Albumin 3.1 L 01/06/17 01/05/17 01/05/17 07:45 09:20 09:20 RBC 3.63 L 3.73 L Hgb 11.6 L 11.5 L Hct 33.8 L 34.9 L Creatinine Glucose 113 H Calcium 8.5 L Albumin Accu-Cheks are ranging from 125-180. CT of the abdomen and pelvis: IMPRESSION: Fecal impaction. Severe spinal canal stenosis at L3-4 and L4-5. Low-attenuation lesion in the right kidney which is probably a cyst. Scar and discoid atelectasis in both lung bases Meds: Medications Acetaminophen (Tylenol) 650 mg PO Q6H [facility] Last Admin: 01/07/17 14:58 Dose: 650 mg Al Hydrox/Mg Hydrox/Simethicone (Maalox) 30 ml PO Q6HP PRN PRN Reason: Dyspepsia Citalopram Hydrobromide (Celexa) 20 mg PO DAILY [facility] Last Admin: 01/07/17 08:16 Dose: 20 mg Dextrose (Dextrose 50%) 0 ml IV UD PRN PRN Reason: Hypoglycemia Diagnostic Test (Pha) (Accu-Chek) 1 each FS ACHS [facility] Last Admin: 01/07/17 17:50 Dose: 1 each Docusate Sodium (Colace) 100 mg PO BID [facility] Last Admin: 01/07/17 08:16 Dose: 100 mg Gabapentin (Neurontin) 100 mg PO TID [facility] Last Admin: 01/07/17 14:58 Dose: 100 mg Glucose (Insta-Glucose) 15 gm PO PRN PRN PRN Reason: Hypoglycemia Heparin Sodium (Porcine) (Heparin) 5,000 unit SQ Q12 [facility] Last Admin: 01/07/17 08:19 Dose: 5,000 unit Insulin Human Lispro (Humalog) 0 unit SQ ACHS [facility] PRN Reason: Protocol Last Admin: 01/07/17 17:50 Dose: Not Given Isosorbide Mononitrate (Imdur) 30 mg PO DAILY [facility] Last Admin: 01/07/17 08:15 Dose: 30 mg Lidocaine (Lidoderm) 1 patch TOPICAL DAILY@1000 [facility] Last Admin: 01/07/17 12:30 Dose: 1 patch Lidocaine (Lidoderm) 0 patch TOPICAL DAILY@2200 [facility] Last Admin: 01/06/17 21:07 Dose: 1 patch Lisinopril (Zestril) 10 mg PO DAILY [facility] Last Admin: 01/07/17 08:16 Dose: 10 mg Magnesium Hydroxide (Milk Of Magnesia) 30 ml PO DAILYP PRN PRN Reason: Constipation Metformin HCl (Glucophage) 500 mg PO BIDCC [facility] Last Admin: 01/07/17 17:53 Dose: 500 mg Methocarbamol (Robaxin) 500 mg PO TID [facility] Last Admin: 01/07/17 14:59 Dose: 500 mg Naloxone HCl (Narcan) 0.1 mg IV Q2MIN PRN PRN Reason: Opiate Reversal Ondansetron HCl (Zofran) 4 mg IV Q6HP PRN PRN Reason: Nausea And Vomiting Oxycodone HCl (Roxicodone) 5 mg PO Q4HP PRN PRN Reason: Pain Last Admin: 01/06/17 08:02 Dose: 5 mg Senna (Senokot) 2 tab PO HS [facility] Last Admin: 01/06/17 20:57 Dose: 2 tab Simvastatin (Zocor) 20 mg PO [facility] Last Admin: 01/06/17 20:57 Dose: 20 mg Sodium Biphosphate/Sodium Phosphate (Fleets Adult) 1 dose SD Q3-4DAYS PRN PRN Reason: Constipation Sodium Chloride (Saline Flush) 10 ml IV Q8 [facility] Last Admin: 01/07/17 14:59 Dose: 10 ml Tramadol HCl (Ultram) 50 mg PO Q4-6HP PRN PRN Reason: Pain Last Admin: 01/07/17 08:26 Dose: 50 mg Trazodone HCl (Desyrel) 50 mg PO [facility] Last Admin: 01/06/17 20:57 Dose: 50 mg Medical - PN: A/P - Time Spent With Patient Total time spent is greater than 50% in coordination of care (as documented) at patient's floor/unit and/or counseling patient: 25 - 35 minutes - Narrative A/P Narrative: A/P #1. Persistent issues with acute on chronic back pain. The patient does not seem physically able to manage her ADLs at home, and it does not appear that family will be able to supply adequate 24 hour care either. -Plan is to tentatively transfer her to rehab tomorrow. -Continue Tylenol, methocarbamol, gabapentin, topical Lidoderm. Add hydrocodone very judiciously. 2. GI. Acute constipation. This is improved after bowel meds. Continue bowel regimen. 3. Type 2 diabetes. Fair control. 4. Hypertension. Controlled. 5. DVT prophylaxis: Subcu heparin. 6. CODE STATUS: DNR. Medical - PN: Qual - Stroke Symptom Onset Unknown: No - VTE Deep Vein Thrombosis/Pulmonary Embolism Present on Admission: No
[2017-01-07] MEDS: SIMVASTATIN 20 MG TABLET PO SCH (20:39)
[2017-01-07] MEDS: SENNOSIDES 1 TABLET PO SCH (20:39)
[2017-01-07] MEDS: traZODone HCL 50 MG TABLET PO SCH (20:39)
[2017-01-08] MEDS: DOCUSATE SODIUM 100 MG CAPSULE PO SCH ×2 (03:25→09:20)
[2017-01-08] MEDS: SENNOSIDES 1 TABLET PO SCH (03:27)
[2017-01-08] MEDS: ACETAMINOPHEN 325 MG TABLET PO SCH ×2 (05:04→09:23)
[2017-01-08] MEDS: 0.9 % SODIUM CHLORIDE 10 ML SYRINGE IV SCH (05:48)
[2017-01-08 06:26] LABS: Basophils # (Auto) 0 K/mcL (0.0-0.3); Basophils % (Auto) 0.6 % (0.0-2.0); Eosinophils # (Auto) 0.1 K/mcL (0.0-0.7); Eosinophils % (Auto) 1.8 % (0.0-7.0); Granulocytes % (Auto) 59.3 % (38.0-78.0); Lymphocytes # (Auto) 1.8 K/mcL (1.5-4.8); Mean Cell Volume 94.1 fL (80.0-100.0); Mean Corpuscular HGB Conc 33.8 g/dL (31.0-36.0); Mean Corpuscular Hemoglobin 31.8 pg (26.0-34.0); Monocytes # (Auto) 0.7 K/mcL (0.1-0.9); Monocytes % (Auto) 10.3 % (1.0-12.0); Platelet Count 335 K/mcL (140-440); Red Cell Distribution Width 14.2 % (11.5-14.5)
[2017-01-08 06:48] LABS: ALT/SGPT 14 U/l (0-40); Albumin 3.6 gm/dL (3.2-5.2); Albumin/Globulin Ratio 1.1 (1.0-2.3); Alkaline Phosphatase 86 U/L (39-117); Bilirubin,Direct < 0.2 mg/dL (0.0-0.3); Blood Urea Nitrogen 10 mg/dl (8-23); Gamma Glutamyl Transpeptidase 23 U/L (5-36); Magnesium 1.5 mg/dL (1.6-2.5); Uric Acid 4.1 mg/dL (2.5-8.0)
[2017-01-08] MEDS: INSULIN LISPRO 1 UNIT/0.01 ML UNIT SQ SCH ×2 (07:04→11:47)
[2017-01-08] MEDS: metFORMIN 500 MG TABLET PO SCH (08:33)
[2017-01-08] MEDS ORDERED: MAGNESIUM OXIDE 400 MG TABLET PO SCH (09:00)
[2017-01-08] MEDS: HEPARIN 5,000 UNIT/ML VIAL SQ SCH (09:20)
[2017-01-08] MEDS: CITALOPRAM 20 MG TABLET PO SCH (09:20)
[2017-01-08] MEDS: GABAPENTIN 100 MG CAPSULE PO SCH (09:20)
[2017-01-08] MEDS: ISOSORBIDE MONONITRATE 30 MG TAB.XL.24H PO SCH (09:20)
[2017-01-08] MEDS: METHOCARBAMOL 500 MG TABLET PO SCH (09:20)
[2017-01-08] MEDS: LISINOPRIL 10 MG TABLET PO SCH (09:20)
[2017-01-08] MEDS: LIDOCAINE PATCH TOPICAL SCH (09:51)
--- NOTE | 2017-01-08 12:23 | Discharge Summary ---
Medical - DS: Prov Patient information: Note initiated : 01/08/17 at 12:15 pm Service Date, if different from initiated Date: [] Patient: Arminda Loera 86 y/o F admitted on 01/05/17 for Back Pain/Management of Acute Pain. Chief Complaint: [] Date of admission: 01/05/17 13:13 Discharge date: 01/08/17 Primary care physician: Edgardo Newman Admitting clinician: Robby Victoria Consults: 01/05/17 12:23 Consult to Physician [CONS] Stat Comment: Consulting Provider: Robby Victoria Reason For Exam: Physician to Consult Attending physician on discharge: Joan Caballero Medical - DS: Meds - Discharge Medications Prescriptions: Ondansetron HCl [Zofran ODT] 4 mg SL Q4-6HP PRN #1 tablet PRN Reason: Nausea oxyCODONE HCL [Roxicodone] 5 mg PO Q4HP PRN #60 tab PRN Reason: Pain Active and Home Medications: Discharge medications: Zofran sublingual 4 mg every 4 hours as needed nausea Tylenol 650 mg every 6 hours scheduled Maalox 30 mL every 6 hours as needed indigestion Celexa 20 mg daily Colace 100 mg p.o. twice daily for constipation Gabapentin 100 mg p.o. 3 times daily Glucose tab 15 g p.o. as needed hypoglycemia Heparin 5000 units subcu every 12 hours until fully ambulatory Humalog sliding scale before meals and at bedtime, low-dose Imdur 30 mg daily Lidoderm patch daily, remove nightly Ramipril 10 mg daily Milk of magnesia 30 mL daily as needed constipation Magnesium oxide 400 mg p.o. daily Metformin 500 mg p.o. twice daily with meals Oxycodone 5 mg p.o. every 4 hours as needed for back pain uncontrolled with Tylenol and tramadol. Senna 2 tabs p.o. nightly Simvastatin 20 mg nightly Tramadol 50 mg every 4-6 hours as needed mild pain next line trazodone 50 mg p.o. nightly Previous home Medications Citalopram [Celexa] 20 mg PO DAILY 12/27/16 [History Confirmed 01/05/17 Last Taken 01/05/17 20 MG] Gabapentin [Neurontin] 100 mg PO TID #30 cap 12/27/16 [Rx Confirmed 01/05/17 Last Taken 01/05/17 100 MG] HYDROcodone/ACETAMINOPHEN [Hydrocodon-Acetaminophen 5-325] 1 each PO Q4HP PRN [History Confirmed 01/05/17 Last Taken 01/05/17 1 EACH] Isosorbide Mononitrate [Imdur] 30 mg PO DAILY 12/27/16 [History Confirmed Last Taken 01/05/17 30 MG] Ramipril [Altace] 10 mg PO DAILY 12/27/16 [History Confirmed 01/05/17 Last Taken 01/05/17 10 MG] Simvastatin [Zocor] 20 mg PO DAILY 12/27/16 [History Confirmed 01/05/17 Last Taken 01/05/17 20 MG] metFORMIN [Glucophage] 500 mg PO BIDCC 12/27/16 [History Confirmed 01/05/17 Last Taken 01/05/17 500 MG] traZODone HCL [Trazodone HCl] 50 mg PO HS 12/27/16 [History Confirmed 01/05/17 Last Taken 01/05/17 50 MG] Methocarbamol [Robaxin] 500 mg PO QIDP #30 tab 12/30/16 [Rx Confirmed 01/05/17 Last Taken Unknown] Medical - DS: Hosp Hospital course: Mr. Loera is a 86 year old F January 05: History of present illness: Ms. Loera is a 86 year old Female with h/o chr back pain spanning 2 decades presents to the ER today with complaints of acute exacerbation of chr back pain. he patient has known history of spinal stenosis, and DDD of spine, advised surgery approx 17 hrs ago, which she did not want to undergo. The patient now presents with pain in the lower back. The patient notes she fell on the right side of her body approximately 10-14 days ago in a parking lot, the pain started a few days later, lower back, 10/10 severity, radiates anteriority, worse with activity better with rest. she has been seen in the ER 3 times for this pain and finally today has been admitted for management. The patient in the last visits was started on gabapentin and methocarbamol. The patient also is taking hydrocodone for her pain. She has not had a BM x 5-6 days and has poor oral intake. The patient also has significant constipation which is related to her use of narcotic pain medications. she denies any new weakness in the legs or loss of bowel bladder control, (has constipation) . Usually she follows with Dr Thompson from the pain clinic for management of her pain, she receives injections in her back which help her. This time she was not able to reach her pain doctor due to severity of her pain. In the ER she had a CT scan abdomen done which showed severe spinal stenosis, l3 -l4, and l4-5, fecal impaction. She was given enema in the ER with good response. her labs are otherwise normal. Patient was admitted to the hospital for management of acute pain. January 06 Patient seen examined, no acute ovenight events she still has pain when trying to amulate but her meds seem to be helping her pain she did not complaint of pain while in bed, but not sure if she will be abl to be pain free without her home meds. she was started on lidoderm patches today PT and OT to help with back pain she continues to have good BM January 07: Today, the patient continues to complain of fairly severe low back pain. Therapist no that she both complains of pain and worries about pain she might have, and is very tentative with attempts at therapy. Social work has reviewed her home situation, and although the son and [id number] live next door, they are too ill to provide care. is also too week to provide reliable care and is very hard of hearing. Our therapist feel that the patient needs a great deal of assistance, and would not do well with returning home. Therefore case management has met with him at length, and I believe they have agreed to transfer to a nursing facility for short-term rehab. The patient continues to have significant pain, but any narcotics seem to cause increased confusion. She otherwise denies fever chills, chest pain or shortness of breath, nausea or vomiting. She is having bowel movements, but says she has trouble feeling was actually happening when she voids. January 08: Hospital course: This patient has a history of chronic and severe back pain, spinal stenosis, degenerative disc disease of her spine. Unfortunately, 2 weeks prior to admission she took a fall in a parking lot, while trying to walk without her walker, as she was looking for her , who had use a walker to go into the store. She has had worsening back pain ever since then. She was seen in the emergency room and started on gabapentin, methocarbamol, hydrocodone. Not long after that she developed fairly severe constipation. She was admitted and treated with bowel meds, and eventually her bowels started moving again, and that problem appears resolved currently. We have had some trouble getting her pain controlled without making her drowsy. Lidoderm patches were added to her regimen, and do seem to give her some relief. The patient is clearly very tentative when walking, frightened of what pain she might have or what fall she might have. She is not back to baseline functional status, and would be at high risk for falls at home. Both PT and occupational therapies strongly recommended inpatient rehab to decrease her fall risk, prior to returning home. She does live with her , but he is extremely hard of hearing, and cannot hear her call for help. She has family that lives next door, but they have their own medical issues and cannot provide 24 hour assistance. Today, she notes she is feeling a bit better. She did walk further today with a walker. She thinks her current pain regimen is helping with her pain. She is still very worried about whether or not anyone will be able to do anything to make this acute pain that is on top of her chronic pain, improve. Otherwise, she denies fever chills, chest pain or shortness of breath, abdominal pain, nausea or vomiting, diarrhea or dysuria. On exam, she is awake and alert. She is quite calm and cooperative today. Neck is supple without obvious lymphadenopathy or JVD. Cardiac exam shows regular rate and rhythm. Lungs are clear to auscultation. Abdomen is soft and nontender. Extremities show no significant edema. Neurologic exam: Is grossly nonfocal. A/P #1. Persistent issues with acute on chronic back pain. The patient does not seem physically able to manage her ADLs at home, and it does not appear that family will be able to supply adequate 24 hour care either. -Transfer to rehab today, for aggressive physical therapy and occupational therapy. Ultimate plan is to return home. -She would benefit from a [facility] type set up as well. -She and her may want to consider moving to a higher level of care living arrangement. -Continue Tylenol, methocarbamol, gabapentin, topical Lidoderm. Add oxycodone very judiciously. When she is nearer to her baseline, oxycodone could be changed back to hydrocodone. She should also have follow-up with the pain clinic, as before. 2. GI. Acute constipation. This is improved after bowel meds. Continue bowel regimen. 3. Type 2 diabetes. Fair control. Continue metformin, Accu-Cheks and sliding scale insulin. 4. Hypertension. Controlled. 5. DVT prophylaxis: Subcu heparin. 6. CODE STATUS: DNR. Discharge diagnosis: Acute back injury, superimposed on chronic back pain, spinal stenosis, DDD - Time Spent with Patient Total time spent providing and/or coordinating discharge services: Greater than 30 minutes Medical - DS: Exam - Constitutional Vitals: Vital Signs Temp Pulse Resp BP Pulse Ox 01/08/17 07:19 97.5 F 16 145/64 97 01/08/17 05:00 98.0 F 82 18 122/82 96 01/08/17 00:00 98.1 F 75 18 104/57 96 01/07/17 20:00 98.0 F 85 20 156/72 96 01/07/17 16:00 97.5 F 20 157/70 96 Intake and Output 01/07/17 01/08/17 01/08/17 21:59 05:59 13:59 Intake Total 640 / 640 150 / 150 Output Total 100 / 100 425 / 425 Balance 640 / 640 50 / 50 -425 / -425 Intake: Oral 640 / 640 150 / 150 Output: Void Amount 100 / 100 Urine/Stool Mix 425 / 425 Other: Meal Dinner Percent of Meal Consumed 75% Feeding Ability Independent # Bowel Movements 1 1 Weight 176 lb Medical - DS: Data Procedures and tests throughout hospitalization: CT of the abdomen and pelvis: IMPRESSION: Fecal impaction. Severe spinal canal stenosis at L3-4 and L4-5. Low-attenuation lesion in the right kidney which is probably a cyst. Scar and discoid atelectasis in both lung bases Labs on day of discharge: Labs from last 24 hours 01/08/17 01/08/17 04:50 04:50 WBC 6.5 RBC 3.70 L Hgb 11.8 L Hct 34.8 L MCV 94.1 MCH 31.8 MCHC 33.8 RDW 14.2 Plt Count 335 MPV 9.7 Gran % 59.3 Lymph % (Auto) 28.0 [place] % (Auto) 10.3 Eos % (Auto) 1.8 Baso % (Auto) 0.6 Gran # 3.9 Lymph # (Auto) 1.8 [place] # (Auto) 0.7 Eos # (Auto) 0.1 Baso # (Auto) 0 Sodium 142 Potassium 3.5 Chloride 104 Carbon Dioxide 22 Anion Gap 16.0 BUN 10 Creatinine 0.6 GFR Calculation 83 Glucose 136 H Uric Acid 4.1 Calcium 9.1 Phosphorus 3.4 Magnesium 1.5 L Total Bilirubin 0.6 Direct Bilirubin < 0.2 GGT 23 AST 25 ALT 14 Alkaline Phosphatase 86 Lactate Dehydrogenase 227 Total Protein 7.0 Albumin 3.6 Globulin 3.4 Albumin/Globulin Ratio 1.1 Triglycerides 151 H Medical - DS: A/P - Patient/Caregiver Discharge Instructions Activity: as per physical therapy, increase activity as tolerated Diet: Consistent Carbohydrate Additional Instructions: Colace 100 mg twice a day Prescriptions: Ondansetron HCl [Zofran ODT] 4 mg SL Q4-6HP PRN #1 tablet PRN Reason: Nausea oxyCODONE HCL [Roxicodone] 5 mg PO Q4HP PRN #60 tab PRN Reason: Pain Other Amb Orders: Aspiration Precautions Location: Determined By Patient Fall Risk Location: Determined By Patient OT Discharge Order Location: Determined By Patient Physical Therapy at Discharge - General Location: Determined By Patient - Follow up Plan Follow up with: Mukesh Martins MD [Physician] - Edgardo Newman DO [Primary Care Provider] - Disposition: [facility] Prognosis: Fair Rehab Potential: Fair Overall status at discharge: patient is progressing back to baseline Medical - DS: Qual - VTE Deep Vein Thrombosis/Pulmonary Embolism Present on Admission: No
== END 2017-01-08 13:10 ==
LOC: MEDSUR 07:51 → ED 07:51 → SUATTDRO 13:13 → MEDSUR 13:15
PROVIDERS: ADMIT Internal Medicine; ATTEND Internal Medicine

== ENCOUNTER 2020-11-13 04:39 | Inpatient (IN) ==
[2020-11-13] MEDS ORDERED: IOPAMIDOL 100 ML BOTTLE IV ONE (04:40)
--- NOTE | 2020-11-13 05:25 | Emergency Department Note ---
Abdominal Pain HPI General Chief Complaint: Constipation Stated Complaint: Suspects constipation Time Seen by Provider: 11/13/20 04:54 Source: patient and EMS Mode of arrival: EMS Limitations: no limitations History of Present Illness HPI Narrative: Narrative: 89 yo F w/ h/o HLD, HTN, DM2 based on home medication list p/w abdominal pain. She is a poor historian but reports that the abdominal pain is L sided, nonra diating, present constantly for the past several days. She has been unable to have a BM for the past several days as well. Unclear if she is still passing gas. She denies any dysuria, F/C, N/V. Later, I was able to speak w/ her daughter Carin, who stated that pt was recently seen at [facility] for a fall w/ L rib pain. She had imaging done there which was negative. Since then, she has been having pain that the family thought was from the rib cage. She notes that the pt likely has some dementia as well. She also notes that the pt has been having worsening pain with ambulation and position changes and has required multiple EMS visits to the house to help her move. Related Data Home Medications Medication Instructions Recorded Confirmed citalopram 20 mg PO DAILY 12/27/16 05/20/17 isosorbide mononitrate 30 mg PO DAILY 12/27/16 05/20/17 metformin 500 mg PO BIDCC 12/27/16 05/20/17 ramipril [Altace] 5 mg PO DAILY 12/27/16 05/20/17 simvastatin 20 mg PO DAILY 12/27/16 05/20/17 trazodone 50 mg PO HS 12/27/16 05/20/17 metoprolol tartrate 25 mg PO DAILY 05/20/17 05/20/17 hydrocodone-acetaminophen PO 11/13/20 Previous Rx's Medication Instructions Recorded Accu-Chek 1 ea FS ACHS strip 01/08/17 Insta-Glucose (with dextrin) 15 gm PO PRN PRN oral.susp 01/08/17 acetaminophen [Tylenol] 650 mg PO Q6H tablet 01/08/17 alum-mag hydroxide-simeth [Mag-Al 30 ml PO Q6HP PRN oral.susp 01/08/17 Plus] insulin lispro [Humalog U-100 See Protocol SQ ACHS unit 01/08/17 Insulin] magnesium hydroxide [Milk of 30 ml PO DAILYP PRN oral.susp 01/08/17 Magnesia] sennosides [Senna Lax] 2 tab PO HS tablet 01/08/17 lidocaine 1 patch TOPICAL DAILY@1000 #30 04/26/17 patch Allergies Allergy/AdvReac Type Severity Reaction Status Date / Time ibuprofen AdvReac Mild Hives Verified 11/13/20 04:55 Penicillins AdvReac Mild Hives Verified 11/13/20 04:55 Review of Systems ROS ROS Narrative: Narrative: All systems ED: reviewed and negative except as stated. PFSH Narrative Patient History Narrative: Narrative: Medical/Surgical/Family History All Active Problems (Updated 11/13/20 @ 07:21 by Hugo Martínez MD) Degenerative disc disease (Acute) Strain of lumbar region (Acute) Lumbar radiculopathy (Acute) Spinal stenosis (Acute) Constipation (Acute) Lumbar compression fracture (Acute) Constipation (Acute) Fall (Acute) UTI (urinary tract infection) (Acute) Fall (Acute) Contusion of back (Acute) Right lower quadrant abdominal pain (Acute) Back pain (Acute) Abdominal pain (Acute) Constipation (Acute) Celiac artery stenosis (Acute) Social History Smoking Status: Never smoker Exam Narrative Narrative: Narrative: General Limitations: no limitations General appearance: Present alert and in no apparent distress Head Head: Present atraumatic and normocephalic Eye Eye: Present normal appearance ENT ENT: Present normal oropharynx and mucous membranes dry Chest Chest: Present normal inspection and symmetric chest wall rise Respiratory Respiratory: Present normal lung sounds bilaterally; Absent respiratory distress, rales/crackles, wheezes and stridor Cardiovascular Cardiovascular: Present regular rate, normal rhythm, +S1 and +S2 Adbominal Abdominal: Present soft, tenderness (LUQ, LLQ) and normal bowel sounds; Absent distention, guarding, rebound and rigidity Extremities Extremities: Absent pedal edema Neurological Neurological: Present alert and other (oriented to person and place only) Psychiatric Psychiatric: Present normal affect Skin Skin: Present warm (WNL) and dry Course Vital Signs Vital signs: Vital Signs Temperature 98.1 F 11/13/20 04:44 Pulse Rate 68 11/13/20 04:44 Respiratory Rate 15 11/13/20 04:44 Blood Pressure 153/67 11/13/20 04:44 Pulse Oximetry (%) 89 L 11/13/20 04:44 Temperature 98.1 F 11/13/20 06:10 Pulse Rate 86 11/13/20 07:48 Respiratory Rate 15 11/13/20 06:10 Blood Pressure 156/87 11/13/20 07:18 Pulse Oximetry (%) 94 11/13/20 07:48 MDM MDM Narrative Medical decision making narrative: Narrative: 89 yo F w/ apparent h/o HTN, HLD, DM (and possibly dementia based on exam) p/w L sided abdominal pain. DDx - peritonitis, AAA, mesenteric ischemia, constipation Pt presented in NAD. She had some mild TTP over the L abdomen, but no frankly peritoneal signs. Given her age and comorbidities I checked a CT, which showed no peritoneal processes, and no AAA. While there was a 90% stenosis of the celiac artery, this was stable compared to previous CTs and clinically I did not feel that acute mesenteric ischemia was likely. She had no pain out of proportion to exam, no report of intestinal angina. She did have evidence of constipation, for which I ordered mag citrate. However on reassessment, she was crying out in pain. Her abdominal exam had worsened - there was significant TTP over the entire L half of the abdomen, with guarding present. I d/w Dr Caballero who stated that he would review the case and evaluate her. At this time I am signing the pt out to Dr Pryor for ongoing monitoring pending surgical evaluation. Lab Data Result diagrams: 11/13/20 05:27 11/13/20 05:27 Labs: Lab Results 11/13/20 11/13/20 11/13/20 Range/Units 05:27 05:27 05:30 WBC 8.4 (4.5-11.0) K/mcL RBC 3.54 L (3.59-5.38) M/mcL Hgb 11.0 L (11.2-15.7) g/dL Hct 33.8 L (34.1-44.9) % MCV 95.5 (80.0-100.0) fL MCH 31.1 (26.0-34.0) pg MCHC 32.5 (31.0-36.0) g/dL RDW 13.2 (11.5-14.5) % Plt Count 246 (140-440) K/mcL MPV 10.9 H (7.4-10.4) fL Neut % (Auto) 77.7 (38.0-78.0) % Lymph % (Auto) 12.5 L (15.5-49.0) % [place] % (Auto) 8.1 (1.0-12.0) % Eos % (Auto) 1.1 (0.0-7.0) % Baso % (Auto) 0.6 (0.0-2.0) % Lymph # (Auto) 1.05 L (1.50-4.80) K/mcL [place] # (Auto) 0.68 (0.10-0.90) K/mcL Eos # (Auto) 0.09 (0.00-0.70) K/mcL Baso # (Auto) 0.05 (0.00-0.30) K/mcL Absolute Neutrophils 6.53 (1.80-8.00) K/mcL Sodium 137 (133-145) mmol/L Potassium 3.9 (3.3-5.1) mmol/L Chloride 101 (96-108) mmol/L Carbon Dioxide 24 (22-30) mmol/L Anion Gap 12.0 (8.0-16.0) BUN 15 (8-23) mg/dL Creatinine 0.7 (0.6-1.1) mg/dL POC Creatinine 0.7 (0.6-1.2) mg/dL GFR Calculation 76 Glucose 178 H (70-105) mg/dL Calcium 9.0 (8.6-10.4) mg/dL Total Bilirubin 1.1 H (0.1-1.0) mg/dL AST 17 (<32) U/L ALT 14 (<40) U/L Alkaline Phosphatase 58 (39-117) U/L Total Protein 6.7 (5.9-8.4) gm/dL Albumin 3.8 (3.2-5.2) gm/dL Globulin 2.9 (2.2-3.7) gm/dL Albumin/Globulin Ratio 1.3 (1.0-2.3) Discharge Plan Patient/Caregiver Discharge Instructions Pt seen by FLYER MAKER/PA only: No Clinical Impression: Abdominal pain, Constipation, Celiac artery stenosis Instructions: Constipation (ED), Abdominal Pain (ED) Activity Restrictions/Additional Instructions: Patient Disposition: Still a Patient Condition: Fair Follow up with: Edgardo Newman DO [Primary Care Provider] - Prescriptions: No Action trazodone 50 MG tablet 50 mg PO HS RF: 0 simvastatin 20 MG tablet 20 mg PO DAILY RF: 0 ramipril [Altace] 10 MG capsule 5 mg PO DAILY RF: 0 isosorbide mononitrate 30 MG tablet extended release 24 hr 30 mg PO DAILY RF: 0 citalopram 20 MG tablet 20 mg PO DAILY RF: 0 metformin 500 MG tablet 500 mg PO BIDCC RF: 0 Accu-Chek 1 EACH Strip 1 ea FS ACHS RF: 0 acetaminophen [Tylenol] 325 MG tablet 650 mg PO Q6H RF: 0 magnesium hydroxide [Milk of Magnesia] 30 ML suspension 30 ml PO DAILYP PRN (Reason: Constipation) RF: 0 alum-mag hydroxide-simeth [Mag-Al Plus] 30 ML suspension 30 ml PO Q6HP PRN (Reason: Dyspepsia) RF: 0 insulin lispro [Humalog U-100 Insulin] 1 UNIT/0.01 ML solution See Protocol units SQ ACHS RF: 0 Insta-Glucose (with dextrin) 31 GM gel 15 gm PO PRN PRN (Reason: Hypoglycemia) RF: 0 sennosides [Senna Lax] 1 TAB tablet 2 tab PO HS RF: 0 lidocaine 1 PATCH patch 1 patch TOPICAL DAILY@1000 Qty: 30 RF: 0 metoprolol tartrate 50 MG tablet 25 mg PO DAILY RF: 0 hydrocodone-acetaminophen 7.5-325 mg Tablet PO RF: 0
[2020-11-13] MEDS: 0.9 % SODIUM CHLORIDE 1,000 ML IV SCH ×3 (05:30→18:56)
[2020-11-13 06:45] LABS: Basophils # (Auto) 0.05 K/mcL (0.00-0.30); Basophils % (Auto) 0.6 % (0.0-2.0); Eosinophils # (Auto) 0.09 K/mcL (0.00-0.70); Eosinophils % (Auto) 1.1 % (0.0-7.0); Hematocrit 33.8 % (34.1-44.9); Lymphocytes # (Auto) 1.05 K/mcL (1.50-4.80); Lymphocytes % (Auto) 12.5 % (15.5-49.0); Mean Cell Volume 95.5 fL (80.0-100.0); Mean Corpuscular HGB Conc 32.5 g/dL (31.0-36.0); Mean Platelet Volume 10.9 fL (7.4-10.4); Monocytes # (Auto) 0.68 K/mcL (0.10-0.90); Monocytes % (Auto) 8.1 % (1.0-12.0); Neutrophils % (Auto) 77.7 % (38.0-78.0); Platelet Count 246 K/mcL (140-440); RBC 3.54 M/mcL (3.59-5.38); Red Cell Distribution Width 13.2 % (11.5-14.5); WBC 8.4 K/mcL (4.5-11.0)
[2020-11-13 06:52] LABS: ALT/SGPT 14 U/L (<40); AST/SGOT 17 U/L (<32); Albumin 3.8 gm/dL (3.2-5.2); Albumin/Globulin Ratio 1.3 (1.0-2.3); Alkaline Phosphatase 58 U/L (39-117); Bilirubin,Total 1.1 mg/dL (0.1-1.0); Blood Urea Nitrogen 15 mg/dL (8-23); Carbon Dioxide 24 mmol/L (22-30); Chloride 101 mmol/L (96-108); Globulin 2.9 gm/dL (2.2-3.7); Glomerular Filtration Rate 76; Glucose 178 mg/dL (70-105)
--- NOTE | 2020-11-13 06:56 | Cat Scan Report ---
CLINICAL INFORMATION: Abdominal pain and constipation COMPARISON: Abdomen and pelvic CT 04/14/2020. Pelvic CT 11/10/2017 TECHNIQUE: Following enteric contrast, 80 cc of Isovue-370 were injected intravenously, and 60 seconds later, 0.625 mm helical slices were obtained from mid heart through the subtrochanteric regions. Following reconstruction, 2.5 mm sagittal, coronal and axial reformatted images were processed and reviewed at bone, lung and soft tissue windows. Five minutes later, 0.625 mm helical slices were obtained from the mid heart through the kidneys and viewed at soft tissue windows.The exam was performed using radiation dose optimization techniques including, but not limited to, automated exposure control, adjustment of the mA and/or kV according to patient size and use of iterative reconstruction technique. FINDINGS: The lung bases show complete consolidated atelectasis of the medial basilar segment right lower lobe with subsegmental atelectasis scattered throughout the remainder of both posterior lower lobes and small left pleural effusion which are all new. Mild underlying chronic bronchitis noted. The heart is moderately enlarged with calcific plaque in the coronary arteries. Abdominal images show the gallbladder and bile ducts, liver, left kidney, adrenal glands, spleen, pancreas and aorta are normal in size, configuration and attenuation without focal lesion. A 16 mm simple cyst mid right kidney is stable. Right kidney is, otherwise, normal. 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 This would predispose to median arcuate ligament syndrome.. There is no free air, free fluid or adenopathy. Pelvic images show normal urinary bladder. Uterus and both ovaries are surgically absent. The stomach, small bowel, and large bowel are grossly normal. The appendix is surgically absent. Bone windows again show a mild chronic L1 osteoporotic compression fracture. Degeneration in the lower lumbar spine is stable. No new compression fractures. There is, however, a new vertically oriented osteoporotic insufficiency fracture through the left sacral ala. IMPRESSION: 1. No acute disease in the abdomen or pelvis. 2. 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 The patient is at risk for median arcuate ligament syndrome. Please correlate with postprandial nausea and abdominal pain. 3. Vertically oriented insufficiency fracture left sacral ala-new. 4. Mild chronic L1 compression fracture-stable 5. Consolidated atelectasis of the medial basilar segment right lower lobe with moderate subsegmental atelectasis in the remaining lower lobes and small left pleural effusion. All findings are new from the comparison CT seven months ago. Interpreted and Authenticated by: Bhavin Ocasio 11/13/20
[2020-11-13] MEDS ORDERED: MAGNESIUM CITRATE 300 ML ORAL.SOL PO ONE (07:13)
[2020-11-13] MEDS ORDERED: morphine 4 MG/ML VIAL IV ONE (07:43)
[2020-11-13 09:13] LABS: Appearance,Urine CLOUDY (Clear); Bilirubin,Urine Negative (Negative); Color,Urine YELLOW; Culture Indicated,Urine No; Glucose,Urine (UA) Negative (Negative); Ketones,Urine Negative (Negative); Leukocyte Esterase,Urine 500 /ug (Negative); Mucus,Urine MOD /hpf; Nitrate,Urine Negative (Negative); Protein,Urine Negative (Negative); Specific Gravity,Urine 1.034 (1.000-1.035); Urine Blood Negative (Negative); Urine RBC 4 /hpf (0-3); Urine Squamous Epithelial Cell 15 /hpf (0-4); Urine Transitional Epi Cells 1 /hpf (0-2); Urine WBC 74 /hpf (0-4); Urobilinogen,Urine Negative
[2020-11-13] MEDS ORDERED: ONDANSETRON 4 MG/2 ML VIAL IV PRN (10:38)
[2020-11-13] MEDS ORDERED: DEXTROSE 31 GM ORAL.SUSP PO PRN (10:43)
[2020-11-13] MEDS ORDERED: DEXTROSE 50% 50 ML VIAL IV PRN (10:43)
--- NOTE | 2020-11-13 11:20 | Emergency Department Note ---
Course Vital Signs Vital signs: Vital Signs Temperature 98.1 F 11/13/20 04:44 Pulse Rate 68 11/13/20 04:44 Respiratory Rate 15 11/13/20 04:44 Blood Pressure 153/67 11/13/20 04:44 Pulse Oximetry (%) 89 L 11/13/20 04:44 Temperature 98.1 F 11/13/20 06:10 Pulse Rate 61 11/13/20 10:31 Respiratory Rate 15 11/13/20 06:10 Blood Pressure 149/65 11/13/20 10:31 Pulse Oximetry (%) 100 11/13/20 10:31 MDM MDM Narrative Medical decision making narrative: I assumed care from Dr. Martínez at the change of shift. Dr. Caballero evaluated the patient in person in the emergency department and admitted her to his service. Lab Data Result diagrams: 11/13/20 05:27 11/13/20 05:27 Labs: Lab Results 11/13/20 11/13/20 11/13/20 Range/Units 05:27 05:27 05:30 WBC 8.4 (4.5-11.0) K/mcL RBC 3.54 L (3.59-5.38) M/mcL Hgb 11.0 L (11.2-15.7) g/dL Hct 33.8 L (34.1-44.9) % MCV 95.5 (80.0-100.0) fL MCH 31.1 (26.0-34.0) pg MCHC 32.5 (31.0-36.0) g/dL RDW 13.2 (11.5-14.5) % Plt Count 246 (140-440) K/mcL MPV 10.9 H (7.4-10.4) fL Neut % (Auto) 77.7 (38.0-78.0) % Lymph % (Auto) 12.5 L (15.5-49.0) % [place] % (Auto) 8.1 (1.0-12.0) % Eos % (Auto) 1.1 (0.0-7.0) % Baso % (Auto) 0.6 (0.0-2.0) % Lymph # (Auto) 1.05 L (1.50-4.80) K/mcL [place] # (Auto) 0.68 (0.10-0.90) K/mcL Eos # (Auto) 0.09 (0.00-0.70) K/mcL Baso # (Auto) 0.05 (0.00-0.30) K/mcL Absolute Neutrophils 6.53 (1.80-8.00) K/mcL Sodium 137 (133-145) mmol/L Potassium 3.9 (3.3-5.1) mmol/L Chloride 101 (96-108) mmol/L Carbon Dioxide 24 (22-30) mmol/L Anion Gap 12.0 (8.0-16.0) BUN 15 (8-23) mg/dL Creatinine 0.7 (0.6-1.1) mg/dL POC Creatinine 0.7 (0.6-1.2) mg/dL GFR Calculation 76 Glucose 178 H (70-105) mg/dL Calcium 9.0 (8.6-10.4) mg/dL Total Bilirubin 1.1 H (0.1-1.0) mg/dL AST 17 (<32) U/L ALT 14 (<40) U/L Alkaline Phosphatase 58 (39-117) U/L Total Protein 6.7 (5.9-8.4) gm/dL Albumin 3.8 (3.2-5.2) gm/dL Globulin 2.9 (2.2-3.7) gm/dL Albumin/Globulin Ratio 1.3 (1.0-2.3) Urine Color Urine Appearance (Clear) Urine pH (5.0-9.0) Ur Specific [place] (1.000-1.035) Urine Protein (Negative) mg/dL Urine Glucose (UA) (Negative) mg/dL Urine Ketones (Negative) mg/dL Urine Occult Blood (Negative) mg/dL Urine Nitrate (Negative) Urine Bilirubin (Negative) mg/dL Urine Urobilinogen mg/dL Ur Leukocyte Esterase (Negative) /ug Urine RBC (0-3) /hpf Urine WBC (0-4) /hpf Ur Squamous Epith Cells (0-4) /hpf Ur Transition Epith Cell (0-2) /hpf Urine Bacteria (0) /hpf Urine Mucus (None) /hpf Ur Culture Indicated? 11/13/20 Range/Units 08:42 WBC (4.5-11.0) K/mcL RBC (3.59-5.38) M/mcL Hgb (11.2-15.7) g/dL Hct (34.1-44.9) % MCV (80.0-100.0) fL MCH (26.0-34.0) pg MCHC (31.0-36.0) g/dL RDW (11.5-14.5) % Plt Count (140-440) K/mcL MPV (7.4-10.4) fL Neut % (Auto) (38.0-78.0) % Lymph % (Auto) (15.5-49.0) % [place] % (Auto) (1.0-12.0) % Eos % (Auto) (0.0-7.0) % Baso % (Auto) (0.0-2.0) % Lymph # (Auto) (1.50-4.80) K/mcL [place] # (Auto) (0.10-0.90) K/mcL Eos # (Auto) (0.00-0.70) K/mcL Baso # (Auto) (0.00-0.30) K/mcL Absolute Neutrophils (1.80-8.00) K/mcL Sodium (133-145) mmol/L Potassium (3.3-5.1) mmol/L Chloride (96-108) mmol/L Carbon Dioxide (22-30) mmol/L Anion Gap (8.0-16.0) BUN (8-23) mg/dL Creatinine (0.6-1.1) mg/dL POC Creatinine (0.6-1.2) mg/dL GFR Calculation Glucose (70-105) mg/dL Calcium (8.6-10.4) mg/dL Total Bilirubin (0.1-1.0) mg/dL AST (<32) U/L ALT (<40) U/L Alkaline Phosphatase (39-117) U/L Total Protein (5.9-8.4) gm/dL Albumin (3.2-5.2) gm/dL Globulin (2.2-3.7) gm/dL Albumin/Globulin Ratio (1.0-2.3) Urine Color Yellow Urine Appearance Cloudy A (Clear) Urine pH 6.0 (5.0-9.0) Ur Specific [place] 1.034 (1.000-1.035) Urine Protein Negative (Negative) mg/dL Urine Glucose (UA) Negative (Negative) mg/dL Urine Ketones Negative (Negative) mg/dL Urine Occult Blood Negative (Negative) mg/dL Urine Nitrate Negative (Negative) Urine Bilirubin Negative (Negative) mg/dL Urine Urobilinogen Negative mg/dL Ur Leukocyte Esterase 500 A (Negative) /ug Urine RBC 4 H (0-3) /hpf Urine WBC 74 H (0-4) /hpf Ur Squamous Epith Cells 15 H (0-4) /hpf Ur Transition Epith Cell 1 (0-2) /hpf Urine Bacteria None (0) /hpf Urine Mucus Mod A (None) /hpf Ur Culture Indicated? No Discharge Plan Patient/Caregiver Discharge Instructions Pt seen by MACHINE [employer]WORK[employer]ER/PA only: No Clinical Impression: Abdominal pain, Constipation, Celiac artery stenosis Instructions: Constipation (ED), Abdominal Pain (ED) Activity Restrictions/Additional Instructions: Patient Disposition: Xfer As Inpt ([facility]) Condition: Fair Follow up with: Edgardo Newman DO [Primary Care Provider] - Prescriptions: No Action trazodone 50 MG tablet 50 mg PO HS RF: 0 simvastatin 20 MG tablet 20 mg PO DAILY RF: 0 ramipril [Altace] 10 MG capsule 5 mg PO DAILY RF: 0 isosorbide mononitrate 30 MG tablet extended release 24 hr 30 mg PO DAILY RF: 0 citalopram 20 MG tablet 20 mg PO DAILY RF: 0 metformin 500 MG tablet 500 mg PO BIDCC RF: 0 Accu-Chek 1 EACH Strip 1 ea FS ACHS RF: 0 acetaminophen [Tylenol] 325 MG tablet 650 mg PO Q6H RF: 0 magnesium hydroxide [Milk of Magnesia] 30 ML suspension 30 ml PO DAILYP PRN (Reason: Constipation) RF: 0 alum-mag hydroxide-simeth [Mag-Al Plus] 30 ML suspension 30 ml PO Q6HP PRN (Reason: Dyspepsia) RF: 0 insulin lispro [Humalog U-100 Insulin] 1 UNIT/0.01 ML solution See Protocol units SQ ACHS RF: 0 Insta-Glucose (with dextrin) 31 GM gel 15 gm PO PRN PRN (Reason: Hypoglycemia) RF: 0 sennosides [Senna Lax] 1 TAB tablet 2 tab PO HS RF: 0 lidocaine 1 PATCH patch 1 patch TOPICAL DAILY@1000 Qty: 30 RF: 0 metoprolol tartrate 50 MG tablet 25 mg PO DAILY RF: 0 hydrocodone-acetaminophen 7.5-325 mg Tablet PO RF: 0
--- NOTE | 2020-11-13 14:03 | General Surg History&Physical ---
HPI History of Present Illness Patient information: Note initiated : 11/13/20 at 1:52 pm Service Date, if different from initiated Date: [] Patient: Arminda Loera a 89 y/o F admitted on 11/13/20 for Suspects constipation. Chief Complaint: [] Chief complaint: Abdominal pain, chest wall pain, constipation History of present illness: Ms. Loera is a 89 year old F who is seen in the emergency room for evaluation of abdominal pain with nausea, left lower chest wall pain and constipation. History is that she fell out of her electric wheelchair on 11 November 2020. She struck her left side and injured her left rib cage. She was seen in the emergency room at [facility] where evaluation was nonrevealing except for chest wall injury. She was discharged on hydrocodone for pain but was only given 4tablets. She had not had a bowel movement for 3 days prior to receiving the narcotics and she feels bloated with need to have a bowel movement. CT of the abdomen done today just shows a large fecal burden much more prominent in the right colon but also extending in the left colon and rectum. No evidence of intra-abdominal visceral injury. There is an incidental finding of celiac axis stenosis but this is of no clinical significance at this time. She is admitted to treat her crampy abdominal pain and control her chest wall discomfort. Her constipation will be treated with Relistor. Review of Systems ROS unobtainable: due to mental status [facility] PFS All Active Problems (Updated 11/13/20 @ 14:02 by Pool Caballero MD) Dementia (Acute) Lower abdominal pain (Acute) Degenerative disc disease (Acute) Strain of lumbar region (Acute) Lumbar radiculopathy (Acute) Spinal stenosis (Acute) Constipation (Acute) Lumbar compression fracture (Acute) Constipation (Acute) Fall (Acute) UTI (urinary tract infection) (Acute) Fall (Acute) Contusion of back (Acute) Right lower quadrant abdominal pain (Acute) Back pain (Acute) Abdominal pain (Acute) Constipation (Acute) Celiac artery stenosis (Acute) MEDS/ALLERGIES Home Medications and Allergies Home Medications Medication Instructions Recorded Confirmed Type citalopram 20 mg PO DAILY 12/27/16 05/20/17 History isosorbide mononitrate 30 mg PO DAILY 12/27/16 05/20/17 History metformin 500 mg PO BIDCC 12/27/16 05/20/17 History ramipril [Altace] 5 mg PO DAILY 12/27/16 05/20/17 History simvastatin 20 mg PO DAILY 12/27/16 05/20/17 History trazodone 50 mg PO HS 12/27/16 05/20/17 History Accu-Chek 1 ea FS ACHS strip 01/08/17 05/20/17 Rx Insta-Glucose (with dextrin) 15 gm PO PRN PRN oral.susp 01/08/17 05/20/17 Rx acetaminophen [Tylenol] 650 mg PO Q6H tablet 01/08/17 05/20/17 Rx alum-mag hydroxide-simeth [Mag-Al 30 ml PO Q6HP PRN oral.susp 01/08/17 05/20/17 Rx Plus] insulin lispro [Humalog U-100 See Protocol SQ ACHS unit 01/08/17 Rx Insulin] magnesium hydroxide [Milk of 30 ml PO DAILYP PRN oral.susp 01/08/17 05/20/17 Rx Magnesia] sennosides [Senna Lax] 2 tab PO HS tablet 01/08/17 05/20/17 Rx lidocaine 1 patch TOPICAL DAILY@1000 #30 04/26/17 05/20/17 Rx patch metoprolol tartrate 50 mg PO DAILY 05/20/17 05/20/17 History Adult Aspirin EC Low Strength 81 mg PO DAILY 11/13/20 11/13/20 History hydrocodone-acetaminophen 7.5 tab PO PRN PRN 11/13/20 11/13/20 History Allergies Allergy/AdvReac Type Severity Reaction Status Date / Time ibuprofen AdvReac Mild Hives Verified 11/13/20 04:55 Penicillins AdvReac Mild Hives Verified 11/13/20 04:55 Physical Examination Vital Signs Vital signs: Temp Pulse Resp BP Pulse Ox 98.1 F 66 15 166/113 92 11/13/20 12:47 11/13/20 12:47 11/13/20 12:47 11/13/20 12:47 11/13/20 12:47 General physical appearance General physical exam: moderate distress, moderate pain and chronically ill Eyes Eye exam: PERRL and normal ocular movement ENT ENT exam: decreased hearing Head Head exam IM: Present atraumatic, normal inspection and normocephalic Neck Neck exam: no masses, trachea midline, no lymphadenopathy and no venous distension Cardiovascular Cardiovascular exam IM: Present normal rate and rhythm, RRR, +S1 and +S2; Absent JVD and rubs Respiratory Respiratory exam: normal expansion, normal respiratory effort and clear to a uscultation Abdomen Abdomen: Present tender (Moderate tenderness to palpation of left upper quadrant and left flank region with bruising of left flank) and distended (Moderate distention) Integumentary Integumentary: Present no rash, no growths and no abnormal pigmentation Neurologic Neurologic: Present normal sensation, disoriented, confused and memory loss Musculoskeletal Musculoskeletal: Present normal posture and other (Nonambulatory) Psychiatric Psychiatric: Present oriented to person; Absent speech is normal and memory intact Results Labs Result diagrams: 11/13/20 05:27 11/13/20 05:27 Labs: Abnormal lab results 11/13/20 11/13/20 11/13/20 Range/Units 05:09 05:27 05:27 RBC 3.54 L (3.59-5.38) M/mcL Hgb 11.0 L (11.2-15.7) g/dL Hct 33.8 L (34.1-44.9) % MPV 10.9 H (7.4-10.4) fL Lymph % (Auto) 12.5 L (15.5-49.0) % Lymph # (Auto) 1.05 L (1.50-4.80) K/mcL Glucose 178 H (70-105) mg/dL Total Bilirubin 1.1 H (0.1-1.0) mg/dL C-Reactive Protein 1.10 H (0.03-0.80) mg/dL Urine Appearance (Clear) Ur Leukocyte Esterase (Negative) /ug Urine RBC (0-3) /hpf Urine WBC (0-4) /hpf Ur Squamous Epith Cells (0-4) /hpf Urine Mucus (None) /hpf 11/13/20 Range/Units 08:42 RBC (3.59-5.38) M/mcL Hgb (11.2-15.7) g/dL Hct (34.1-44.9) % MPV (7.4-10.4) fL Lymph % (Auto) (15.5-49.0) % Lymph # (Auto) (1.50-4.80) K/mcL Glucose (70-105) mg/dL Total Bilirubin (0.1-1.0) mg/dL C-Reactive Protein (0.03-0.80) mg/dL Urine Appearance Cloudy A (Clear) Ur Leukocyte Esterase 500 A (Negative) /ug Urine RBC 4 H (0-3) /hpf Urine WBC 74 H (0-4) /hpf Ur Squamous Epith Cells 15 H (0-4) /hpf Urine Mucus Mod A (None) /hpf Diabetes panel 11/13/20 Range/Units 05:27 Sodium 137 (133-145) mmol/L Potassium 3.9 (3.3-5.1) mmol/L Chloride 101 (96-108) mmol/L Carbon Dioxide 24 (22-30) mmol/L BUN 15 (8-23) mg/dL Creatinine 0.7 (0.6-1.1) mg/dL Glucose 178 H (70-105) mg/dL Calcium 9.0 (8.6-10.4) mg/dL AST 17 (<32) U/L ALT 14 (<40) U/L Alkaline Phosphatase 58 (39-117) U/L Total Protein 6.7 (5.9-8.4) gm/dL Albumin 3.8 (3.2-5.2) gm/dL Calcium panel 11/13/20 Range/Units 05:27 Calcium 9.0 (8.6-10.4) mg/dL Albumin 3.8 (3.2-5.2) gm/dL Pituitary panel 11/13/20 Range/Units 05:27 Sodium 137 (133-145) mmol/L Potassium 3.9 (3.3-5.1) mmol/L Chloride 101 (96-108) mmol/L Carbon Dioxide 24 (22-30) mmol/L BUN 15 (8-23) mg/dL Creatinine 0.7 (0.6-1.1) mg/dL Glucose 178 H (70-105) mg/dL Calcium 9.0 (8.6-10.4) mg/dL Adrenal panel 11/13/20 Range/Units 05:27 Sodium 137 (133-145) mmol/L Potassium 3.9 (3.3-5.1) mmol/L Chloride 101 (96-108) mmol/L Carbon Dioxide 24 (22-30) mmol/L BUN 15 (8-23) mg/dL Creatinine 0.7 (0.6-1.1) mg/dL Glucose 178 H (70-105) mg/dL Calcium 9.0 (8.6-10.4) mg/dL Total Bilirubin 1.1 H (0.1-1.0) mg/dL AST 17 (<32) U/L ALT 14 (<40) U/L Alkaline Phosphatase 58 (39-117) U/L Total Protein 6.7 (5.9-8.4) gm/dL Albumin 3.8 (3.2-5.2) gm/dL All other labs normal. A/P Assessment and plan (1) Lower abdominal pain: Status: Acute (2) Constipation: Status: Acute Qualifiers: Constipation type: slow transit constipation Qualified Code(s): K59.01 - Slow transit constipation (3) Contusion of back: Status: Acute Qualifiers: Encounter type: initial encounter Laterality: unspecified laterality Qualified Code(s): S20.229A - Contusion of unspecified back wall of thorax, initial encounter (4) Constipation: Status: Acute (5) Dementia: Status: Acute (6) Lumbar compression fracture: Status: Acute Qualifiers: Encounter type: initial encounter Fracture type: closed Lumbar vertebra fracture level: L1 Qualified Code(s): S32.010A - Wedge compression fracture of first lumbar vertebra, initial encounter for closed fracture Narrative A/P Narrative: Relistor 12 mg subcu daily Dicyclomine 20 mg 3 times daily MiraLAX 17 g in 8 ounces of liquid 3 times daily Lidoderm patch 12 hours each day Follow-up abdominal x-rays in the morning Time Spent With Patient Time: Total time spent is greater than 50% in coordination of care (as documented) at patient's floor/unit and/or counseling patient:
[2020-11-13] MEDS: ACETAMINOPHEN 1,000 MG/100 ML BAG IV SCH ×3 (14:07→23:03)
[2020-11-13] MEDS: INSULIN LISPRO 1 UNIT/0.01 ML UNIT SQ SCH ×3 (14:08→20:50)
[2020-11-13] MEDS: METHYLNALTREXONE BROMIDE 12 MG/0.6 ML SYRINGE SQ SCH (15:06)
[2020-11-13] MEDS: 0.9 % SODIUM CHLORIDE 10 ML SYRINGE IV SCH ×2 (15:07→21:07)
[2020-11-13] MEDS: DOCUSATE SODIUM 100 MG CAPSULE PO SCH (20:50)
[2020-11-13] MEDS: SENNOSIDES 1 TABLET PO SCH (20:50)
[2020-11-14] MEDS: LIDOCAINE PATCH TOPICAL SCH ×2 (02:30→08:39)
[2020-11-14] MEDS: 0.9 % SODIUM CHLORIDE 1,000 ML IV SCH ×5 (04:36→15:59)
[2020-11-14] MEDS: ACETAMINOPHEN 1,000 MG/100 ML BAG IV SCH (04:48)
[2020-11-14] MEDS: 0.9 % SODIUM CHLORIDE 10 ML SYRINGE IV SCH ×2 (04:49→13:00)
[2020-11-14] MEDS: INSULIN LISPRO 1 UNIT/0.01 ML UNIT SQ SCH ×4 (07:17→20:32)
[2020-11-14 07:38] LABS: Basophils # (Auto) 0.06 K/mcL (0.00-0.30); Basophils % (Auto) 1.2 % (0.0-2.0); Eosinophils # (Auto) 0.12 K/mcL (0.00-0.70); Eosinophils % (Auto) 2.4 % (0.0-7.0); Hematocrit 36.4 % (34.1-44.9); Hemoglobin 11.5 g/dL (11.2-15.7); Lymphocytes # (Auto) 1.32 K/mcL (1.50-4.80); Mean Cell Volume 97.1 fL (80.0-100.0); Mean Corpuscular HGB Conc 31.6 g/dL (31.0-36.0); Mean Platelet Volume 10.7 fL (7.4-10.4); Monocytes # (Auto) 0.63 K/mcL (0.10-0.90); Monocytes % (Auto) 12.4 % (1.0-12.0); Platelet Count 236 K/mcL (140-440); RBC 3.75 M/mcL (3.59-5.38); Red Cell Distribution Width 13.3 % (11.5-14.5); WBC 5.1 K/mcL (4.5-11.0)
[2020-11-14] MEDS: hydrALAZINE 25 MG TABLET PO SCH ×3 (07:59→23:00)
[2020-11-14] MEDS: oxyCODONE HCL 5 MG TABLET PO PRN ×3 (07:59→20:46)
[2020-11-14] MEDS: POLYETHYLENE GLYCOL 3350 17 GM PACKET PO SCH ×4 (08:00→20:20)
[2020-11-14 08:20] LABS: ALT/SGPT 11 U/L (<40); AST/SGOT 18 U/L (<32); Albumin 3.2 gm/dL (3.2-5.2); Albumin/Globulin Ratio 1.1 (1.0-2.3); Alkaline Phosphatase 53 U/L (39-117); Bilirubin,Direct 0.3 mg/dL (<0.3); Blood Urea Nitrogen 7 mg/dL (8-23); Calcium 8.5 mg/dL (8.6-10.4); Carbon Dioxide 22 mmol/L (22-30); Chloride 102 mmol/L (96-108); Globulin 2.9 gm/dL (2.2-3.7); Glomerular Filtration Rate 80; Glucose 122 mg/dL (70-105); Lactate Dehydrogenase 158 U/L (135-225); Phosphorous 2.9 mg/dL (2.5-4.5); Triglycerides 94 mg/dL (<150); Uric Acid 3.5 mg/dL (2.5-8.0)
[2020-11-14] MEDS: DOCUSATE SODIUM 100 MG CAPSULE PO SCH ×2 (08:41→20:20)
[2020-11-14] MEDS: METHYLNALTREXONE BROMIDE 12 MG/0.6 ML SYRINGE SQ SCH (08:42)
[2020-11-14] MEDS: RAMIPRIL 2.5 MG CAPSULE PO SCH (08:49)
[2020-11-14] MEDS ORDERED: METOPROLOL TARTRATE 50 MG TABLET PO SCH (09:00)
[2020-11-14] MEDS ORDERED: METHYLNALTREXONE BROMIDE 12 MG/0.6 ML SYRINGE SQ SCH (09:00)
--- NOTE | 2020-11-14 14:56 | XRay Report ---
CLINICAL INFORMATION: constipation and ileus COMPARISON: 04/28/2017 FINDINGS: The stomach and a few loops of upper small bowel are mildly dilated with decompression of the distal small bowel and colon. Findings suggestive of partial small bowel obstruction. No free air or soft tissue mass. Urinary bladder is mildly distended. Small infiltrate or atelectasis in the left base IMPRESSION: Partial small bowel obstruction Interpreted and Authenticated by: Bhavin Ocasio 11/14/20
--- NOTE | 2020-11-14 16:44 | EKG ---
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
--- NOTE | 2020-11-14 16:54 | EKG ---
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 QRS complexes are slightly widened compared to prior. Possible atrial flutter now appreciated Electronically Signed On 11-14-2020 16:54:02 PDT by Mayur Duran /store/M0/[id number]/ecg/[id number]
--- NOTE | 2020-11-14 17:20 | General Surgery Progress Note ---
SUBJECTIVE Subjective Patient information: Note initiated : 11/14/20 at 5:15 pm Service Date, if different from initiated Date: [] Patient: Arminda Loera 89 y/o F admitted on 11/13/20 for Suspects constipation. Chief Complaint: [] Interval history: Patient is stable. Her left lower rib cage discomfort is about the same. She has less abdominal pain and she is starting to pass flatus. She denies nausea. Her pain is not well controlled with medications at this time. Constitutional Vitals: Vital Signs Temp Pulse Resp BP Pulse Ox 97.6 F 72 20 157/77 92 11/14/20 15:52 11/14/20 15:52 11/14/20 15:52 11/14/20 15:52 11/14/20 15:52 Period Temp Pulse Resp BP Sys/Warner Pulse Ox Last 24 Hr 96.9 F-98.3 F 60-88 18-22 141-194/60-91 90-93 Intake and Output 11/14/20 11/14/20 11/14/20 05:59 13:59 21:59 Intake Total 1600 1354 Output Total 1300 400 350 Balance 300 -400 1004 Weight 183 lb 1.6 oz Patient Weight 11/15/20 05:59 Weight 183 lb 1.6 oz Intake & Output: Intake & Output 11/14/20 11/14/20 11/14/20 05:59 13:59 21:59 Intake Total 1600 1354 Output Total 1300 400 350 Balance 300 -400 1004 Weight 183 lb 1.6 oz Intake: IV 1200 994 Sodium Chloride 0.9% 1,000 ml @ 1000 994 125 mls/hr IV .Q8H [facility] Rx#: [id number] Oral 400 360 Output: Void Amount 1300 400 350 Other: Meal Lunch Percent of Meal Consumed 100% Feeding Ability Assist with Tray Set Up Urine Appearance Clear Clear Clear Urine Color Pale Bright Yellow Bright Yellow Urine Odor Normal Normal Head Head exam: Present atraumatic, normal inspection and normocephalic Eye Eye exam: Present EOMI and PERRL Pupils: Present normal accommodation ENT ENT exam: Present mucous membranes moist and normal exam Neck Neck exam: Present full ROM; Absent lymphadenopathy, tenderness and thyromegaly Respiratory Respiratory exam: Present accessory muscle use Additional comments: Hypoventilation with splinting on the left Cardiovascular Cardiovascular exam: Present normal rate and rhythm, RRR, +S1 and +S2; Absent JVD and tachycardia GI/Abdominal GI/Abdominal exam: Present soft, distended and tenderness (Mild tenderness of the left abdomen and left flank without mass and without guarding) Additional comments: Ecchymosis of right back and flank Extremities Exam Extremities exam: Present tenderness (Left hip tenderness); Absent pedal edema Back Exam Back exam: Present CVA tenderness (L), paraspinal tenderness, tenderness and vertebral tenderness Neurological Exam Neurological exam: Present abnormal gait; Absent oriented X3 (Oriented only to person) Psychiatric Psychiatric exam: Present agitated and anxious A/P Assessment and plan (1) Abdominal pain: Status: Acute (2) Left-sided chest wall pain: Status: Acute (3) Dementia: Status: Acute (4) Constipation due to opioid therapy: Status: Acute Narrative A/P Narrative: Continue present therapy Time Spent With Patient Time: Total time spent is greater than 50% in coordination of care (as documented) at patient's floor/unit and/or counseling patient:
[2020-11-14] MEDS: METOPROLOL SUCCINATE 25 MG TAB.XL.24H PO SCH (20:20)
[2020-11-14] MEDS: SENNOSIDES 1 TABLET PO SCH (20:20)
[2020-11-15] MEDS: 0.9 % SODIUM CHLORIDE 10 ML SYRINGE IV SCH ×3 (00:25→12:34)
[2020-11-15] MEDS: 0.9 % SODIUM CHLORIDE 1,000 ML IV SCH ×5 (00:29→18:59)
[2020-11-15] MEDS: oxyCODONE HCL 5 MG TABLET PO PRN ×5 (01:15→23:01)
[2020-11-15] MEDS: hydrALAZINE 25 MG TABLET PO SCH ×3 (05:13→21:55)
[2020-11-15] MEDS: INSULIN LISPRO 1 UNIT/0.01 ML UNIT SQ SCH ×4 (07:11→21:08)
[2020-11-15] MEDS: METHYLNALTREXONE BROMIDE 12 MG/0.6 ML SYRINGE SQ SCH (08:28)
[2020-11-15] MEDS: POLYETHYLENE GLYCOL 3350 17 GM PACKET PO SCH ×3 (08:28→21:08)
[2020-11-15] MEDS: DOCUSATE SODIUM 100 MG CAPSULE PO SCH ×2 (08:28→21:08)
[2020-11-15] MEDS: METOPROLOL SUCCINATE 25 MG TAB.XL.24H PO SCH ×2 (08:28→21:17)
[2020-11-15] MEDS: RAMIPRIL 2.5 MG CAPSULE PO SCH (08:28)
[2020-11-15] MEDS: LIDOCAINE PATCH TOPICAL SCH (09:32)
--- NOTE | 2020-11-15 12:55 | General Surgery Progress Note ---
SUBJECTIVE Subjective Patient information: Note initiated : 11/15/20 at 12:51 pm Service Date, if different from initiated Date: [] Patient: Arminda Loera 89 y/o F admitted on 11/13/20 for Suspects constipation. Chief Complaint: [] Interval history: Patient is improving. She had multiple bowel movements this morning. She still has some abdominal distention. Her rib cage tenderness is slightly improved. She denies nausea. Constitutional Vitals: Vital Signs Temp Pulse Resp BP Pulse Ox 97.9 F 70 18 159/74 90 11/15/20 12:00 11/15/20 12:00 11/15/20 12:00 11/15/20 12:00 11/15/20 12:00 Period Temp Pulse Resp BP Sys/Warner Pulse Ox Last 24 Hr 97.2 F-98.4 F 69-91 18-28 129-196/67-84 90-93 Intake and Output 11/14/20 11/15/20 11/15/20 21:59 05:59 13:59 Intake Total 1754 1050 1120 Output Total 975 1000 150 Balance 779 50 970 Weight 185 lb 1 oz Intake & Output: Intake & Output 11/14/20 11/15/20 11/15/20 21:59 05:59 13:59 Intake Total 1754 1050 1120 Output Total 975 1000 150 Balance 779 50 970 Weight 185 lb 1 oz Intake: IV 994 1000 1000 Sodium Chloride 0.9% 1,000 ml @ 994 1000 1000 125 mls/hr IV .Q8H [facility] Rx#: [id number] Oral 760 50 120 Output: Void Amount 975 1000 150 Other: Meal Dinner Breakfast Percent of Meal Consumed 100% 25% Feeding Ability Assist with Tray Set Up Assist with Tray Set Up Urine Appearance Clear Clear Urine Color Bright Yellow Bright Yellow Urine Odor Normal Normal Stool Size Large Stool Color Brown Stool Consistency Soft Formed # Bowel Movements 1 Eye Eye exam: Present EOMI and PERRL Pupils: Present normal accommodation ENT ENT exam: Present mucous membranes moist and normal exam Neck Neck exam: Present full ROM; Absent lymphadenopathy, tenderness and thyromegaly Respiratory Respiratory exam: Present accessory muscle use Additional comments: Hypoventilation with splinting on the left Cardiovascular Cardiovascular exam: Present normal rate and rhythm, RRR, +S1 and +S2; Absent JVD and tachycardia GI/Abdominal GI/Abdominal exam: Present soft, distended and tenderness (Mild tenderness of the left abdomen and left flank without mass and without guarding) Additional comments: Ecchymosis of right back and flank Extremities Exam Extremities exam: Present tenderness (Left hip tenderness); Absent pedal edema Back Exam Back exam: Present CVA tenderness (L), paraspinal tenderness, tenderness and vertebral tenderness Neurological Exam Neurological exam: Present abnormal gait; Absent oriented X3 (Oriented only to person) Psychiatric Psychiatric exam: Present agitated and anxious A/P Assessment and plan (1) Left-sided chest wall pain: Status: Acute (2) Abdominal pain: Status: Acute (3) Constipation due to opioid therapy: Status: Acute (4) Dementia: Status: Acute Narrative A/P Narrative: Continue present therapy Patient is clinically improved and should be stable enough for transfer to [facility] facility tomorrow Time Spent With Patient Time: Total time spent is greater than 50% in coordination of care (as documented) at patient's floor/unit and/or counseling patient:
[2020-11-15] MEDS: MAGNESIUM HYDROXIDE 30 ML ORAL.SUSP PO SCH ×2 (13:56→18:01)
[2020-11-15] MEDS: DICYCLOMINE 20 MG TABLET PO SCH ×2 (13:58→21:08)
[2020-11-15] MEDS: SENNOSIDES 1 TABLET PO SCH (21:09)
[2020-11-16] MEDS: 0.9 % SODIUM CHLORIDE 10 ML SYRINGE IV SCH ×3 (00:50→14:27)
[2020-11-16] MEDS: oxyCODONE HCL 5 MG TABLET PO PRN ×2 (04:55→15:28)
[2020-11-16] MEDS: hydrALAZINE 25 MG TABLET PO SCH ×3 (05:28→15:31)
[2020-11-16] MEDS: 0.9 % SODIUM CHLORIDE 1,000 ML IV SCH ×3 (05:29→11:16)
[2020-11-16] MEDS: INSULIN LISPRO 1 UNIT/0.01 ML UNIT SQ SCH ×3 (07:23→16:27)
[2020-11-16] MEDS: DICYCLOMINE 20 MG TABLET PO SCH ×4 (08:28→15:31)
[2020-11-16] MEDS: ISOSORBIDE MONONITRATE 30 MG TAB.XL.24H PO SCH ×2 (08:28→13:04)
[2020-11-16] MEDS: METOPROLOL SUCCINATE 25 MG TAB.XL.24H PO SCH ×2 (08:28→13:05)
[2020-11-16] MEDS: DOCUSATE SODIUM 100 MG CAPSULE PO SCH ×2 (08:28→11:31)
[2020-11-16] MEDS: RAMIPRIL 2.5 MG CAPSULE PO SCH ×2 (08:32→13:04)
[2020-11-16] MEDS ORDERED: RAMIPRIL 5 MG CAPSULE PO SCH (09:00)
[2020-11-16] MEDS: POLYETHYLENE GLYCOL 3350 17 GM PACKET PO SCH ×3 (09:03→15:13)
[2020-11-16] MEDS: LIDOCAINE PATCH TOPICAL SCH (13:05)
--- NOTE | 2020-11-16 16:50 | Discharge Summary ---
Discharge Provider Provider Patient information: Note initiated : 11/16/20 at 4:41 pm Service Date, if different from initiated Date: [] Patient: Arminda Loera 89 y/o F admitted on 11/13/20 for Suspects constipation. Chief Complaint: [] Date of admission: 11/13/20 12:45 Discharge date: 11/16/20 Primary care physician: Edgardo Newman Admitting clinician: Pool Caballero Attending physician on admission: Pool Caballero Consults: 11/13/20 Consult to Physician [CONS] Stat Comment: Consulting Provider: Pool Caballero Reason For Exam: Physician to Consult Attending physician on discharge: Pool Caballero Discharging clinician: Pool Caballero COURSE Hospital Course Hospital course: 89-year-old female admitted for severe abdominal pain and left chest wall pain. Patient had a fall on november which caused injury to her left side and left rib cage. She was treated as an outpatient and was started on hydrocodone for pain. The patient presented with a history of not having had a bowel movement for 3 days prior to receiving the narcotics and had not had one over the ensuing [address] that was done in the emergency room showed a large fecal burden much more prominent in the right colon but also extending to the distal colon and rectum. There was no evidence of intra- abdominal visceral injury. She was admitted for control of her abdominal pain treatment of her chest wall pain and treatment of constipation. Patient was given Relistor for narcotic induced slow transit constipation. She was given analgesics for chest wall discomfort. She she gradually improved and had multiple large bowel movements. Follow-up x-rays confirmed left rib fractures. Patient was given the Relistor as well as MiraLAX and subsequently had multiple large bowel movements with relief of her abdominal discomfort. She was given analgesics for rib cage pain. She has done relatively well and has no GI sympt oms at the present time Patient has significant memory deficit with dementia and disorientation to person place and time. Discharge diagnosis: Narcotic induced slow transit constipation Secondary discharge diagnosis: Left rib cage fractures Dementia Contusion of left flank and thorax Reason for admission: Severe constipation left rib fracture Procedures: None Pertinent studies/significant findings: CT of abdomen and pelvis Complications: None Time Spent with Patient Time attestation: Total time spent providing and/or coordinating discharge services: Physical Examination Vital Signs Vital signs: Temp Pulse Resp BP Pulse Ox 98.3 F 73 18 147/70 94 11/16/20 16:00 11/16/20 16:00 11/16/20 16:00 11/16/20 16:00 11/16/20 16:00 General physical appearance General physical exam: moderate distress, moderate pain and chronically ill Eyes Eye exam: PERRL and normal ocular movement ENT ENT exam: decreased hearing Neck Neck exam: no masses, trachea midline, no lymphadenopathy and no venous distension Cardiovascular Cardiovascular exam IM: Present normal rate and rhythm, RRR, +S1 and +S2; Absent JVD and rubs Respiratory Respiratory exam: normal expansion, normal respiratory effort and clear to auscultation Abdomen Abdomen: Present tender (Moderate tenderness to palpation of left upper quadrant and left flank region with bruising of left flank) and distended (Moderate distention) Neurologic Neurologic: Present normal sensation, disoriented, confused and memory loss Musculoskeletal Musculoskeletal: Present normal posture and other (Nonambulatory) Psychiatric Psychiatric: Present oriented to person; Absent speech is normal and memory intact Discharge Plan Patient/Caregiver Discharge Instructions Activity: increase activity as tolerated and other Diet: Regular Diet Instructions: Constipation (ED), Abdominal Pain (ED) Activity Restrictions/Additional Instructions: Prescriptions: New oxycodone-acetaminophen [Endocet] 5-325 mg Tablet 1 tab PO Q4H PRN (Reason: Pain) Qty: 40 RF: 0 polyethylene glycol 3350 [Miralax] 17 gram/dose powder 17 g PO QDAY Qty: 238 RF: 5 No Action trazodone 50 MG tablet 50 mg PO HS RF: 0 simvastatin 20 MG tablet 20 mg PO DAILY RF: 0 ramipril [Altace] 10 MG capsule 5 mg PO DAILY RF: 0 isosorbide mononitrate 30 MG tablet extended release 24 hr 30 mg PO DAILY RF: 0 citalopram 20 MG tablet 20 mg PO DAILY RF: 0 metformin 500 MG tablet 500 mg PO BIDCC RF: 0 acetaminophen [Tylenol] 325 MG tablet 650 mg PO Q6H RF: 0 magnesium hydroxide [Milk of Magnesia] 30 ML suspension 30 ml PO DAILYP PRN (Reason: Constipation) RF: 0 alum-mag hydroxide-simeth [Mag-Al Plus] 30 ML suspension 30 ml PO Q6HP PRN (Reason: Dyspepsia) RF: 0 insulin lispro [Humalog U-100 Insulin] 1 UNIT/0.01 ML solution See Protocol units SQ ACHS RF: 0 sennosides [Senna Lax] 1 TAB tablet 2 tab PO HS RF: 0 lidocaine 1 PATCH patch 1 patch TOPICAL DAILY@1000 Qty: 30 RF: 0 hydrocodone-acetaminophen 7.5-325 mg Tablet 7.5 tab PO PRN PRN (Reason: Pain, Moderate) RF: 0 Adult Aspirin EC Low Strength 81 mg PO DAILY RF: 0 metoprolol succinate 25 mg tablet extended release 24 hr 25 mg PO BID RF: 0 Follow Up Plan Follow up with: Edgardo Newman DO [Primary Care Provider] - Patient Disposition: Home Health Service Prognosis: Fair Rehab Potential: Fair I certify that the patient requires SNF services: No Overall status at discharge: patient is progressing back to baseline Discharge Orders: Discharge Order (Routine); Ordered 11/16/20 Ordered By: Pool Caballero Pending Pending Pending: Resuscitation Status Resuscitate (Full Code) Diet GI Soft/Transitional Start Fri 8 1025 Diagnostic Test (Pha) (Accu-Chek 1 Each Strip) 1 each FS ACHS RENA Michael Admin: 11/16/20 16:27 Dose: 1 each Documented by: Admin: 11/16/20 11:13 Dose: 1 each Documented by: Admin: 11/16/20 07:20 Dose: 1 each Documented by: Admin: 11/15/20 21:07 Dose: 1 each Documented by: Admin: 11/15/20 17:59 Dose: 1 each Documented by: [email or web address] Admin: 11/15/20 11:31 Dose: 1 each Documented by: Admin: 11/15/20 07:11 Dose: 1 each Documented by: Admin: 11/14/20 20:20 Dose: 1 each Documented by: Admin: 11/14/20 17:02 Dose: 1 each Documented by: Admin: 11/14/20 11:11 Dose: 1 each Documented by: Admin: 11/14/20 07:17 Dose: 1 each Documented by: Admin: 11/13/20 20:50 Dose: 1 each Documented by: Admin: 11/13/20 18:01 Dose: 1 each Documented by: Admin: 11/13/20 14:08 Dose: Not Given Documented by: KIA Dicyclomine HCl (Dicyclomine 20 Mg Tablet) 20 mg PO TID [facility] Admin: 11/16/20 15:31 Dose: 20 mg Documented by: Admin: 11/16/20 11:32 Dose: Not Given Documented by: Admin: 11/15/20 21:08 Dose: 20 mg Documented by: Admin: 11/15/20 13:58 Dose: 20 mg Documented by: CELIO Docusate Sodium (Docusate Sodium 100 Mg Capsule) 100 mg PO BID [facility] Last Admin: 11/16/20 11:31 Dose: Not Given Documented by: Admin: 11/15/20 21:08 Dose: Not Given Documented by: Admin: 11/15/20 08:28 Dose: 100 mg Documented by: Admin: 11/14/20 20:20 Dose: 100 mg Documented by: Admin: 11/14/20 08:41 Dose: 100 mg Documented by: Admin: 11/13/20 20:50 Dose: 100 mg Documented by: REY Hydralazine HCl (Hydralazine 25 Mg Tablet) 25 mg PO Q8H [facility] Last Admin: 11/16/20 15:31 Dose: 25 mg Documented by: Admin: 11/16/20 05:28 Dose: 25 mg Documented by: Admin: 11/15/20 21:55 Dose: 25 mg Documented by: Admin: 11/15/20 13:56 Dose: 25 mg Documented by: Admin: 11/15/20 05:13 Dose: 25 mg Documented by: Admin: 11/14/20 23:00 Dose: 25 mg Documented by: Admin: 11/14/20 14:00 Dose: 25 mg Documented by: Admin: 11/14/20 07:59 Dose: 25 mg Documented by: CELIO Sodium Chloride (Sodium Chloride 0.9%) 1,000 mls @ 20 mls/hr IV .Q24H [facility] Last Admin: 11/16/20 05:48 Dose: Not Given Documented by: Admin: 11/15/20 06:04 Dose: Not Given Documented by: Admin: 11/14/20 04:49 Dose: Not Given Documented by: Infusion: 11/13/20 12:40 Dose: 0 mls/hr Documented by: Admin: 11/13/20 05:30 Dose: 20 mls/hr Documented by: WILLIAM Sodium Chloride (Sodium Chloride 0.9%) 1,000 mls @ 125 mls/hr IV .Q8H RENA Last Admin: 11/16/20 11:16 Dose: Not Given Documented by: Admin: 11/16/20 05:29 Dose: Not Given Documented by: Admin: 11/15/20 18:59 Dose: Not Given Documented by: Infusion: 11/15/20 18:58 Dose: 0 mls/hr Documented by: Admin: 11/15/20 11:31 Dose: 125 mls/hr Documented by: Infusion: 11/15/20 08:29 Dose: 125 mls/hr Documented by: Admin: 11/15/20 02:57 Dose: Not Given Documented by: Admin: 11/15/20 00:29 Dose: 125 mls/hr Documented by: Infusion: 11/14/20 23:59 Dose: 125 mls/hr Documented by: Admin: 11/14/20 15:59 Dose: 125 mls/hr Documented by: Infusion: 11/14/20 15:59 Dose: 125 mls/hr Documented by: Admin: 11/14/20 09:23 Dose: Not Given Documented by: Admin: 11/14/20 08:02 Dose: 125 mls/hr Documented by: Admin: 11/14/20 04:36 Dose: Not Given Documented by: Infusion: 11/13/20 23:37 Dose: 125 mls/hr Documented by: Admin: 11/13/20 18:56 Dose: Not Given Documented by: Admin: 11/13/20 15:07 Dose: 125 mls/hr Documented by: KIA Insulin Human Lispro (Insulin Lispro 1 Unit/0.01 Ml Unit) 0 unit SQ ACHS RENA; Protocol Last Admin: 11/16/20 16:27 Dose: Not Given Documented by: Admin: 11/16/20 11:17 Dose: Not Given Documented by: Admin: 11/16/20 07:23 Dose: Not Given Documented by: Admin: 11/15/20 21:08 Dose: 2 units Documented by: Admin: 11/15/20 18:00 Dose: Not Given Documented by: Admin: 11/15/20 11:31 Dose: 2 units Documented by: Admin: 11/15/20 07:11 Dose: Not Given Documented by: Admin: 11/14/20 20:32 Dose: 2 units Documented by: Admin: 11/14/20 17:03 Dose: Not Given Documented by: Admin: 11/14/20 11:10 Dose: 2 units Documented by: Admin: 11/14/20 07:17 Dose: 2 units Documented by: Admin: 11/13/20 20:50 Dose: 4 units Documented by: Admin: 11/13/20 17:31 Dose: Not Given Documented by: Admin: 11/13/20 14:08 Dose: Not Given Documented by: KIA Isosorbide Mononitrate (Isosorbide Mononitrate 30 Mg Tab.Xl.24h) 30 mg PO DAILY [facility] Last Admin: 11/16/20 13:04 Dose: Not Given Documented by: KENTON Lidocaine (Lidocaine Patch) 1 patch TOPICAL DAILY@1000 [facility] Last Admin: 11/16/20 13:05 Dose: Not Given Documented by: Admin: 11/15/20 09:32 Dose: 1 patch Documented by: Admin: 11/14/20 08:39 Dose: 1 patch Documented by: Admin: 11/14/20 02:30 Dose: 1 patch Documented by: REY Metoprolol Succinate (Metoprolol Succinate 25 Mg Tab.Xl.24h) 25 mg PO BID [facility] Last Admin: 11/16/20 13:05 Dose: Not Given Documented by: Admin: 11/15/20 21:17 Dose: 25 mg Documented by: Admin: 11/15/20 08:28 Dose: 25 mg Documented by: Admin: 11/14/20 20:20 Dose: 25 mg Documented by: JULIO Oxycodone HCl (Oxycodone Hcl 5 Mg Tablet) 10 mg PO Q4HP PRN; Protocol PRN Reason: Per Pain Protocol Last Admin: 11/16/20 15:28 Dose: 10 mg Documented by: Admin: 11/16/20 04:55 Dose: 10 mg Documented by: Admin: 11/15/20 23:01 Dose: 10 mg Documented by: Admin: 11/15/20 19:19 Dose: 10 mg Documented by: Admin: 11/15/20 09:49 Dose: 10 mg Documented by: Admin: 11/15/20 05:13 Dose: 10 mg Documented by: Admin: 11/15/20 01:15 Dose: 10 mg Documented by: Admin: 11/14/20 20:46 Dose: 5 mg Documented by: Admin: 11/14/20 12:53 Dose: 10 mg Documented by: Admin: 11/14/20 07:59 Dose: 10 mg Documented by: CELIO Polyethylene Glycol (Polyethylene Glycol 3350 17 Gm Packet) 17 gm PO TID [facility] Admin: 11/16/20 15:13 Dose: 17 gm Documented by: Admin: 11/16/20 09:03 Dose: Not Given Documented by: Admin: 11/15/20 21:08 Dose: Not Given Documented by: Admin: 11/15/20 13:58 Dose: 17 gm Documented by: Admin: 11/15/20 08:28 Dose: 17 gm Documented by: Admin: 11/14/20 20:20 Dose: 17 gm Documented by: Admin: 11/14/20 15:19 Dose: 17 gm Documented by: Admin: 11/14/20 08:43 Dose: Not Given Documented by: Admin: 11/14/20 08:00 Dose: 17 gm Documented by: CELIO Ramipril (Ramipril 2.5 Mg Capsule) 10 mg PO DAILY [facility] Admin: 11/16/20 13:04 Dose: Not Given Documented by: KENTON Senna (Sennosides 1 Tablet) 2 tab PO HS [facility] Last Admin: 11/15/20 21:09 Dose: Not Given Documented by: Admin: 11/14/20 20:20 Dose: 2 tab Documented by: Admin: 11/13/20 20:50 Dose: 2 tab Documented by: REY Sodium Chloride (0.9 % Sodium Chloride 10 Ml Syringe) 10 ml IV Q8 [facility] Last Admin: 11/16/20 14:27 Dose: Not Given Documented by: Admin: 11/16/20 07:23 Dose: 10 ml Documented by: Admin: 11/16/20 00:50 Dose: Not Given Documented by: Admin: 11/15/20 12:34 Dose: Not Given Documented by: Admin: 11/15/20 06:04 Dose: Not Given Documented by: Admin: 11/15/20 00:25 Dose: Not Given Documented by: Admin: 11/14/20 13:00 Dose: Not Given Documented by: Admin: 11/14/20 04:49 Dose: Not Given Documented by: Admin: 11/13/20 21:07 Dose: Not Given Documented by: Admin: 11/13/20 15:07 Dose: Not Given Documented by: KIA Shift Summary 11/16/20 02:16 Shift Summary by Breanna Saul Primary Diagnosis: left sided chest wall pain Registration Status: inpatient Day of Hospitalization: 11/13/20 Date of Surgery (if applicable): Pertinent Medical Dx/Issues (may be more than one): (1) Left-sided chest wall pain: Status: Acute (2) Abdominal pain: Status: Acute (3) Constipation due to opioid therapy: Status: Acute (4) Dementia: Status: Acute Interventions (O2, wounds, diuresis, etc): managing pain pharmacologically Vital Signs with Trends: patient continues to have high blood pressure despite medication. IV was DC per Dr. Caballero. Meds (abo, pain, BP, etc): Lines/Tubes: Oxygen needs (home use vs. current use): Lab/Rad results: Cardiac Rhythm (if applicable), alarms, trends: Date of last BM: 11/15/20 Elimination: Up tp commode with assist x1, FWW Recommendations/questions for MD (PAWAN Henry? DC JENNIFER? PICC needed?): Vent/Bipap/Cpap: Trends (is the patient improving?): Patient was pleasant and smiling today. She has been complaining less of pain. Activity: Expected date of discharge: TBA Discharge Plan (needs, disposition, etc):TBA Initialized on 11/16/20 02:16 - END OF NOTE
== END 2020-11-16 18:00 | disposition home health service (06) | DRG 392 ==
LOC: ED 04:39 → MEDSUR 12:45
PROVIDERS: ADMIT Family Medicine Adult Medicine; ATTEND Family Medicine Adult Medicine